=== PATIENT | male | born 1990 | race Hispanic/Latino ===

== ENCOUNTER 2017-06-14 07:31 | Inpatient (IN) | payer SELFPAY ==
[2017-06-14] MEDS ORDERED: QUELICIN ONE (07:46)
[2017-06-14] MEDS ORDERED: DIPRIVAN 10 MG/ML 1,000 MG/100 ML BOTTLE IV ONE (07:46)
[2017-06-14] MEDS ORDERED: AMIDATE IV ONE (07:46)
[2017-06-14] MEDS ORDERED: NACL 0.9% 1000 ML 1,000 ML IV ONE (07:59)
[2017-06-14] MEDS ORDERED: ARTIFICIAL TEARS OPHTH OINT OU PRN (08:00)
[2017-06-14] MEDS ORDERED: NACL 0.9% 500 ML IV SCH (08:00)
[2017-06-14] MEDS: DIPRIVAN 10 MG/ML 1,000 MG/100 ML BOTTLE IV SCH ×2 (08:00→19:18)
[2017-06-14] MEDS ORDERED: VASELINE LIP THERAPY TP PRN (08:00)
[2017-06-14 08:02] LABS: Basophils % (Auto) 0.3 % (0.0-1.8); Eosinophils % (Auto) 1.8 % (0.0-4.3); Hematocrit 46.1 % (35.5-45.6); Hemoglobin 15.4 gm/dl (11.8-15.2); Mean Corpuscular HGB Conc 34 % (32-34); Mean Corpuscular Hemoglobin 31 pg (28-32); Mean Corpuscular Volume 93 fl (84-94); Platelet Count 241 K/mm3 (140-440); Red Blood Count 4.96 M/mm3 (3.65-5.03); Red Cell Distribution Width 12.7 % (13.2-15.2); White Blood Count 12.9 K/mm3 (4.5-11.0)
[2017-06-14 08:08] LABS: INR 1.03 (0.87-1.13); Partial Thromboplastin Time 28.3 Sec. (24.2-36.6)
[2017-06-14 08:09] LABS: Anion Gap 21 mmol/L; Blood Urea Nitrogen 9 mg/dL (9-20); Calcium 8.1 mg/dL (8.4-10.2); Carbon Dioxide 20 mmol/L (22-30); Chloride 103.2 mmol/L (98-107); Glucose 117 mg/dL (75-100); Potassium 3.7 mmol/L (3.6-5.0); Sodium 140 mmol/L (137-145)
--- NOTE | 2017-06-14 08:15 | Cat Scan Report ---
CT scan of head without IV contrast: Compared to 05/10/13. History:Neurodeficit Findings: Ventricles are normal in size and midline in location. No evidence of acute ischemia hemorrhage or mass. No extra axial fluid collection. Normal brainstem and cerebellum. Stable intraventricular shunt. Mucosal edema of its more sinuses and the turbinates. Impression: No acute intracranial abnormality. Sinus disease. No interval change compared to previous study.
[2017-06-14 08:23] LABS: Creatine Kinase MB 2.6 ng/mL (0.0-4.0)
[2017-06-14 08:24] LABS: Alanine Aminotransferase 24 units/L (7-56); Albumin/Globulin Ratio 1.6 %; Alkaline Phosphatase 56 units/L (35-129); Amylase 50 units/L (27-131); Creatine Kinase 160 units/L (55-170); Total Protein 6.5 g/dL (6.3-8.2)
[2017-06-14 08:26] LABS: Bilirubin,Direct < 0.2 mg/dL (0-0.2)
[2017-06-14] MEDS ORDERED: ROCEPHIN/NS 1 GM/50 ML 1 GM/50 ML BAG IV ONE ×2 (08:27→11:24)
--- NOTE | 2017-06-14 08:27 | Emergency Department Report ---
ED General Adult HPI - General Chief complaint: Altered Mental Status Stated complaint: UNRESPONSIVE Time Seen by Provider: 06/14/17 07:57 Source: EMS Mode of arrival: Stretcher Limitations: Altered Mental Status - History of Present Illness Initial comments: Patient arrives with a GCS of 3. History as obtained by the paramedics and as I have obtained from the mother is the following. He was found at approximately 6:30 AM completely unresponsive. He was also noted to have vomited "blood". The mother states that she checked the patient's cell phone and found Texts at 4:30. She also states that he was fine at 9:30 PM. 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 He does not take any current medications. He has not had any recent hospitalizations. He has a history of DEGREE CLERK shunt. According to his mother he drinks beer but does not abuse substances. No further information is available at this time. -: unknown Treatments Prior to Arrival: other (Narcan without effect) - Related Data Home Medications Medication Instructions Recorded Confirmed Last Taken No Known Home Medications [No 06/14/17 06/14/17 Unknown Reported Home Medications] Allergies Allergy/AdvReac Type Severity Reaction Status Date / Time codeine Allergy Hives Verified 02/19/14 12:53 ED Review of Systems ROS: Stated complaint: UNRESPONSIVE Other details as noted in HPI Comment: Unobtainable due to pts medical conditions ED Past Medical Hx - Past Medical History Previous Medical History?: Yes - Surgical History Additional Surgical History: shunt to R. side head - Social History Smoking Status: Unknown if ever smoked Substance Use Type: Alcohol - Medications Home Medications: Home Medications Medication Instructions Recorded Confirmed Last Taken Type No Known Home Medications [No 06/14/17 06/14/17 Unknown History Reported Home Medications] ED Physical Exam - General Limitations: Altered Mental Status (GCS is 3) General appearance: obtunded - Head Head exam: Present: atraumatic, other (DEGREE CLERK shunt is noted) - Eye Eye exam: Present: other (myotic and unresponsive pupils). Absent: scleral icterus Pupils: Present: miosis - ENT ENT exam: Present: mucous membranes moist - Neck Neck exam: Present: normal inspection. Absent: tenderness, meningismus - Respiratory Respiratory exam: Present: rhonchi (bilaterally) - Cardiovascular Cardiovascular Exam: Present: regular rate, normal rhythm. Absent: systolic murmur, diastolic murmur, rubs, gallop - GI/Abdominal GI/Abdominal exam: Present: soft, normal bowel sounds. Absent: distended, tenderness, guarding, rebound - Neurological Exam Neurological exam: Present: other (GCS is 3) - Skin Skin exam: Present: warm, dry, intact, normal color, other (hematemesis is noted on the patient's shoulder). Absent: rash ED Course Vital Signs 06/14/17 07:36 Blood Pressure 123/66 - Reevaluation(s) Reevaluation #1: Patient essentially had snoring respirations probable aspiration at home and inability to protect his airway with a GCS of 3. RSI was promptly accomplished without difficulty. #8 endotracheal tube placed on direct laryngoscopy single attempt. CT was obtained expeditiously. Dr. Hutton found no acute findings and no change from prior CT. Patient remained unresponsive although he is on a propofol drip. His pupils remained miotic and nonreactive. His case was discussed with Dr. Gutierres. The asked me to order an MR study which has been done. Patient is in the process of being admitted to the ICU under the hospitalist service. 06/14/17 09:25 - Intubation Time Out Performed: No Sedative: Etomidate Paralytic: Succinylcholine Laryngoscope: Higinio Size: 4 ET Tube Size: 8 Tube Secured Depth (cm): 24 Tube Secured Location: teeth Tube Placement Confirmation: visualized tube passing t, equal breath sounds bilat, no breath sounds over epi, confirmation by capnometr Patient Tolerated Procedure: well Intubation Complications: none ED Medical Decision Making - Lab Data Result diagrams: 06/14/17 07:30 06/14/17 07:30 Laboratory Results - last 24 hr 06/14/17 06/14/17 06/14/17 07:30 07:30 07:30 WBC 12.9 H RBC 4.96 Hgb 15.4 H Hct 46.1 H MCV 93 MCH 31 MCHC 34 RDW 12.7 L Plt Count 241 Lymph % (Auto) 22.1 [place] % (Auto) 6.1 Eos % (Auto) 1.8 Baso % (Auto) 0.3 Lymph # 2.8 [place] # 0.8 Eos # 0.2 Baso # 0.0 Seg Neutrophils % 69.7 Seg Neutrophils # 9.0 H PT 13.4 INR 1.03 APTT 28.3 Thrombin Time POC ABG pH POC ABG pCO2 POC ABG pO2 POC ABG HCO3 POC ABG Total CO2 POC ABG O2 Sat POC ABG Base Excess FiO2 Sodium 140 Potassium 3.7 Chloride 103.2 Carbon Dioxide 20 L Anion Gap 21 BUN 9 Creatinine 0.9 Estimated GFR > 60 BUN/Creatinine Ratio 10.00 Glucose 117 H Calcium 8.1 L Total Bilirubin Direct Bilirubin AST ALT Alkaline Phosphatase Total Creatine Kinase CK-MB (CK-2) CK-MB (CK-2) Rel Index Troponin T < 0.010 NT-Pro-B Natriuret Pep Total Protein Albumin Albumin/Globulin Ratio Amylase Urine Color Urine Turbidity Urine pH Ur Specific [place] Urine Protein Urine Glucose (UA) Urine Ketones Urine Blood Urine Nitrite Urine Bilirubin Urine Urobilinogen Ur Leukocyte Esterase Urine WBC (Auto) Urine RBC (Auto) Urine Bacteria (Auto) Hyaline Casts Urine Mucus 06/14/17 06/14/17 06/14/17 07:30 07:30 08:46 WBC RBC Hgb Hct MCV MCH MCHC RDW Plt Count Lymph % (Auto) [place] % (Auto) Eos % (Auto) Baso % (Auto) Lymph # [place] # Eos # Baso # Seg Neutrophils % Seg Neutrophils # PT INR APTT Thrombin Time 17.4 POC ABG pH POC ABG pCO2 POC ABG pO2 POC ABG HCO3 POC ABG Total CO2 POC ABG O2 Sat POC ABG Base Excess FiO2 Sodium Potassium Chloride Carbon Dioxide Anion Gap BUN Creatinine Estimated GFR BUN/Creatinine Ratio Glucose Calcium Total Bilirubin 0.20 Direct Bilirubin < 0.2 AST 27 ALT 24 Alkaline Phosphatase 56 Total Creatine Kinase 160 CK-MB (CK-2) 2.6 CK-MB (CK-2) Rel Index 1.6 Troponin T < 0.010 NT-Pro-B Natriuret Pep 34.90 Total Protein 6.5 Albumin 4.0 Albumin/Globulin Ratio 1.6 Amylase 50 Urine Color Yellow Urine Turbidity Clear Urine pH 5.0 Ur Specific [place] 1.009 Urine Protein <15 mg/dl Urine Glucose (UA) Neg Urine Ketones Neg Urine Blood Sm Urine Nitrite Neg Urine Bilirubin Neg Urine Urobilinogen < 2.0 Ur Leukocyte Esterase Neg Urine WBC (Auto) 1.0 Urine RBC (Auto) 1.0 Urine Bacteria (Auto) 1+ Hyaline Casts 1 Urine Mucus Few 06/14/17 08:49 WBC RBC Hgb Hct MCV MCH MCHC RDW Plt Count Lymph % (Auto) [place] % (Auto) Eos % (Auto) Baso % (Auto) Lymph # [place] # Eos # Baso # Seg Neutrophils % Seg Neutrophils # PT INR APTT Thrombin Time POC ABG pH 7.265 L POC ABG pCO2 42.6 POC ABG pO2 289 H POC ABG HCO3 19.3 POC ABG Total CO2 21 POC ABG O2 Sat 100 POC ABG Base Excess -8 FiO2 100 Sodium Potassium Chloride Carbon Dioxide Anion Gap BUN Creatinine Estimated GFR BUN/Creatinine Ratio Glucose Calcium Total Bilirubin Direct Bilirubin AST ALT Alkaline Phosphatase Total Creatine Kinase CK-MB (CK-2) CK-MB (CK-2) Rel Index Troponin T NT-Pro-B Natriuret Pep Total Protein Albumin Albumin/Globulin Ratio Amylase Urine Color Urine Turbidity Urine pH Ur Specific [place] Urine Protein Urine Glucose (UA) Urine Ketones Urine Blood Urine Nitrite Urine Bilirubin Urine Urobilinogen Ur Leukocyte Esterase Urine WBC (Auto) Urine RBC (Auto) Urine Bacteria (Auto) Hyaline Casts Urine Mucus - EKG Data -: EKG Interpreted by Me EKG shows normal: sinus rhythm, axis, intervals, QRS complexes, ST-T waves Rate: normal - EKG Data Interpretation: no acute changes - Radiology Data interpreted by me: ET tube in proper location. Diffuse interstitial marking. Clinically aspiration is suspected. Critical Care Time: Yes Critical care time in (mins) excluding proc time.: 60 Critical care attestation.: If time is entered above; I have spent that time in minutes in the direct care of this critically ill patient, excluding procedure time. ED Disposition Clinical Impression: Upper GI bleeding Coma Qualifiers: Coma depth: Iris coma 3-8 Coma timing: in the field (EMT or ambulance) Qualified Code(s): R40.2431 - Needles coma scale score 3-8, in the field [EMT or ambulance] Aspiration into respiratory tract Qualifiers: Encounter type: initial encounter Qualified Code(s): T17.908A - Unspecified foreign body in respiratory tract, part unspecified causing other injury, initial encounter Disposition: OP ADMIT IP TO THIS HOSP Is pt being admited?: Yes Does the pt Need Aspirin: Yes Condition: Stable Referrals: PRIMARY CARE, [Primary Care Provider] - 3-5 Days Time of Disposition: 09:40
--- NOTE | 2017-06-14 08:28 | XRay Report ---
Single view chest: History: ET tube placement. Findings: Borderline cardiomegaly. Trachea is midline. Tip of endotracheal tube in normal position. Mild pulmonary venous congestion bilaterally. No consolidation or pleural effusion. Impression: Cardiomegaly with mild pulmonary venous congestion.
[2017-06-14] MEDS ORDERED: PROTONIX IV ONE (08:30)
[2017-06-14 08:51] LABS: Urine Drugs of Abuse Note Disclamer
[2017-06-14 08:52] LABS: ISTAT Base Excess -8; ISTAT HCO3 19.3; ISTAT PCO2 42.6 (35-45); ISTAT PH 7.265 (7.35-7.45); ISTAT PO2 289 (80-105); ISTAT SO2 100; ISTAT TCO2 21
[2017-06-14 08:58] LABS: Bacteria,Urine 1+ /HPF (Negative); Bilirubin,Urine NEG (Negative); Blood,Urine SM (Negative); Ketones,Urine NEG (Negative); Leukocyte Esterase,Urine NEG (Negative); Mucus,Urine FEW /HPF; Nitrite,Urine NEG (Negative); Protein,Urine <15 mg/dL mg/dL (Negative); Urobilinogen,Urine < 2.0 mg/dL (<2.0)
[2017-06-14] MEDS ORDERED: ASPIRIN PR ONE (09:14)
--- NOTE | 2017-06-14 09:42 | Event Note ---
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 was intubated in ER for airway protection, got protonix and rocephin, apparently father also of GI bleed * GIB: Consult GI, PPI drip, serial hct * metabolic encephalopathy: continue supportive care, continue vent, will hold sedation to assess mental status, check UDS, MRI/MRA brain, carotid dopplers to assess for anoxic event, EEG to check for seizure and monitor brain activity, Neurology consult * Cerebral palsy; continue supportive care * leukocytosis; appears to be reactive no evidence of infection; UA and CXR neg * Acute respiratory failure, continue vent, attempt to wean in mental status improves The high probability of a clinically significant, sudden or life threatening deterioration of the [neurologic, pulmonary, GI] system(s) required my full and direct attention, intervention and personal management. The aggregate critical care time was [33] minutes. This time is in addition to time spent performing reported procedures but includes the following: [] Data Review and interpretation [] Patient assessment and monitoring of vital signs [] Documentation [] Medication orders and management
[2017-06-14] MEDS ORDERED: DULCOLAX PR PRN (10:22)
[2017-06-14] MEDS: PROTONIX 80 MG in NACL 0.9% 100 ML IV SCH ×2 (12:29→21:18)
--- NOTE | 2017-06-14 12:40 | History and Physical Report ---
History of Present Illness Date of examination: 06/14/17 Date of admission: 06/14/17 10:22 Chief complaint: Unresponsiveness History of present illness: Patient is a 26 years old male with past medical history of cerebral palsy with PERFUME COMPOUNDER shunt, who presents to emergency department by EMS, Patient found unresponsive in bed by family. Patient remains unresponsive therefore unable to obtain history. Per his mother she states that patient normally goes to work around 6:00Am and mother went to his bedroom to waking him up but she found him unresponsive. She also noted that bloody vomit around his mouth and chest. Patient is functional and works in a [employer]. Patient no recent history of sickness. Mother reported that he worked yesterday and she spoke to him last night around 9:00Am and no complains of illness. No reports of fever, chills, chest pain, palpitation, syncope, trauma, seizure, bowel or bladder continence or recent ill contacts. 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 Past History Past Medical History: other (cerebral palsy) Past Surgical History: Other (AV shunt) Social history: lives with family, other (works at [employer], independent of ADLs). denies: smoking, alcohol abuse Family history: CAD, hypertension Medications and Allergies Allergies Allergy/AdvReac Type Severity Reaction Status Date / Time codeine Allergy Hives Verified 02/19/14 12:53 Home Medications Medication Instructions Recorded Confirmed Last Taken Type Cyclobenzaprine [Flexeril 10 MG 5 mg PO Q8H PRN #90 tablet 06/17/17 Unknown Rx TAB] Pantoprazole [Protonix] 40 mg PO QDAY #30 tablet 06/17/17 Unknown Rx levETIRAcetam [Keppra TAB] 500 mg PO BID #60 tablet 06/17/17 Unknown Rx oxyCODONE /ACETAMINOPHEN [Percocet 1 tab PO Q4H PRN #14 tablet 06/17/17 Unknown Rx 5/325 mg] Active Meds: Active Medications Bisacodyl (Dulcolax) 10 mg PA QDAY PRN PRN Reason: constipation unrelieved by MOM Hydrophilic Ointment (Vaseline Lip Therapy) 1 applic TP Q2HR PRN PRN Reason: Dry Lips Propofol (Diprivan 10 Mg/Ml) 1,000 mg in 100 mls @ 3.266 mls/hr IV TITR BONITA; 5 MCG/KG/MIN PRN Reason: Protocol Last Titration: 06/14/17 11:19 Dose: 25 mcg/kg/min, 16.329 mls/hr Sodium Chloride (Nacl 0.9% 1000 Ml) 1,000 mls @ 100 mls/hr IV DIRECT BONITA Pantoprazole Sodium 80 mg/ (Sodium Chloride) 100 mls @ 10 mls/hr IV Q10H BONITA PRN Reason: 8 MG/HR Last Admin: 06/14/17 12:29 Dose: 8 mg/hr, 10 mls/hr Multi-Ingred Cream/Lotion/Oil/Oint (Artificial Tears Ophth Oint) 1 applic OU Q4HR PRN PRN Reason: Dry Eye(s) Sodium Chloride (Nacl 0.9% 500 Ml) 1 ml IV DIRECT BONITA Review of Systems ROS unobtainable: due to mental status (unable to assess due to patient mental status) Exam - Constitutional Vitals: Temp Pulse Resp BP Pulse Ox 99 H 17 95/65 96 06/14/17 10:15 06/14/17 10:15 06/14/17 10:15 06/14/17 08:49 General appearance: Present: severe distress, other (Altered Mental Status (GCS is 3)) - EENT Eyes: Present: scleral icterus (absent), miosis ENT: other (myotic unresponsive pupils ) - Neck Neck: Present: supple - Respiratory Respiratory effort: other (intubated) Respiratory: bilateral: diminished, rhonchi - Cardiovascular Heart rate: 98 Rhythm: regular Heart Sounds: Present: S1 & S2 - Extremities Extremities: no ischemia Peripheral Pulses: within normal limits - Abdominal General gastrointestinal: Present: soft, non-tender Male genitourinary: Present: deferred - Rectal Rectal Exam: deferred - Integumentary Integumentary: Present: clear, warm, dry - Musculoskeletal Musculoskeletal: strength equal bilaterally - Psychiatric Psychiatric: other (Patient is nonresponsive) - Neurologic Neurologic: other (Patient is nonresponsive) - Allied Health Allied health notes reviewed: nursing Results - Labs CBC & Chem 7: 06/15/17 02:54 06/15/17 02:54 Labs: Laboratory Last Values WBC 12.9 K/mm3 (4.5-11.0) H 06/14/17 07:30 RBC 4.96 M/mm3 (3.65-5.03) 06/14/17 07:30 Hgb 15.4 gm/dl (11.8-15.2) H 06/14/17 07:30 Hct 46.1 % (35.5-45.6) H 06/14/17 07:30 MCV 93 fl (84-94) 06/14/17 07:30 MCH 31 pg (28-32) 06/14/17 07:30 MCHC 34 % (32-34) 06/14/17 07:30 RDW 12.7 % (13.2-15.2) L 06/14/17 07:30 Plt Count 241 K/mm3 (140-440) 06/14/17 07:30 Lymph % (Auto) 22.1 % (13.4-35.0) 06/14/17 07:30 [place] % (Auto) 6.1 % (0.0-7.3) 06/14/17 07:30 Eos % (Auto) 1.8 % (0.0-4.3) 06/14/17 07:30 Baso % (Auto) 0.3 % (0.0-1.8) 06/14/17 07:30 Lymph # 2.8 K/mm3 (1.2-5.4) 06/14/17 07:30 [place] # 0.8 K/mm3 (0.0-0.8) 06/14/17 07:30 Eos # 0.2 K/mm3 (0.0-0.4) 06/14/17 07:30 Baso # 0.0 K/mm3 (0.0-0.1) 06/14/17 07:30 Seg Neutrophils % 69.7 % (40.0-70.0) 06/14/17 07:30 Seg Neutrophils # 9.0 K/mm3 (1.8-7.7) H 06/14/17 07:30 PT 13.4 Sec. (12.2-14.9) 06/14/17 07:30 INR 1.03 (0.87-1.13) 06/14/17 07:30 APTT 28.3 Sec. (24.2-36.6) 06/14/17 07:30 Thrombin Time 17.4 Sec. (15.1-19.6) 06/14/17 07:30 POC ABG pH 7.265 (7.35-7.45) L 06/14/17 08:49 POC ABG pCO2 42.6 (35-45) 06/14/17 08:49 POC ABG pO2 289 (80-105) H 06/14/17 08:49 POC ABG HCO3 19.3 06/14/17 08:49 POC ABG Total CO2 21 06/14/17 08:49 POC ABG O2 Sat 100 06/14/17 08:49 POC ABG Base Excess -8 06/14/17 08:49 FiO2 100 % 06/14/17 08:49 Sodium 140 mmol/L (137-145) 06/14/17 07:30 Potassium 3.7 mmol/L (3.6-5.0) 06/14/17 07:30 Chloride 103.2 mmol/L (98-107) 06/14/17 07:30 Carbon Dioxide 20 mmol/L (22-30) L 06/14/17 07:30 Anion Gap 21 mmol/L 06/14/17 07:30 BUN 9 mg/dL (9-20) 06/14/17 07:30 Creatinine 0.9 mg/dL (0.8-1.5) 06/14/17 07:30 Estimated GFR > 60 ml/min 06/14/17 07:30 BUN/Creatinine Ratio 10.00 % 06/14/17 07:30 Glucose 117 mg/dL (75-100) H 06/14/17 07:30 Lactic Acid 2.10 mmol/L (0.7-2.0) H* 06/14/17 09:34 Calcium 8.1 mg/dL (8.4-10.2) L 06/14/17 07:30 Total Bilirubin 0.20 mg/dL (0.1-1.2) 06/14/17 07:30 Direct Bilirubin < 0.2 mg/dL (0-0.2) 06/14/17 07:30 AST 27 units/L (5-40) 06/14/17 07:30 ALT 24 units/L (7-56) 06/14/17 07:30 Alkaline Phosphatase 56 units/L (35-129) 06/14/17 07:30 Total Creatine Kinase 160 units/L (55-170) 06/14/17 07:30 CK-MB (CK-2) 2.6 ng/mL (0.0-4.0) 06/14/17 07:30 CK-MB (CK-2) Rel Index 1.6 (0-4) 06/14/17 07:30 Troponin T < 0.010 ng/mL (0.00-0.029) 06/14/17 07:30 NT-Pro-B Natriuret Pep 34.90 pg/mL (0-450) 06/14/17 07:30 Total Protein 6.5 g/dL (6.3-8.2) 06/14/17 07:30 Albumin 4.0 g/dL (3.9-5) 06/14/17 07:30 Albumin/Globulin Ratio 1.6 % 06/14/17 07:30 Amylase 50 units/L (27-131) 06/14/17 07:30 Urine Color Yellow (Yellow) 06/14/17 08:46 Urine Turbidity Clear (Clear) 06/14/17 08:46 Urine pH 5.0 (5.0-7.0) 06/14/17 08:46 Ur Specific [place] 1.009 (1.003-1.030) 06/14/17 08:46 Urine Protein <15 mg/dl mg/dL (Negative) 06/14/17 08:46 Urine Glucose (UA) Neg mg/dL (Negative) 06/14/17 08:46 Urine Ketones Neg mg/dL (Negative) 06/14/17 08:46 Urine Blood Sm (Negative) 06/14/17 08:46 Urine Nitrite Neg (Negative) 06/14/17 08:46 Urine Bilirubin Neg (Negative) 06/14/17 08:46 Urine Urobilinogen < 2.0 mg/dL (<2.0) 06/14/17 08:46 Ur Leukocyte Esterase Neg (Negative) 06/14/17 08:46 Urine WBC (Auto) 1.0 /HPF (0.0-6.0) 06/14/17 08:46 Urine RBC (Auto) 1.0 /HPF (0.0-6.0) 06/14/17 08:46 Urine Bacteria (Auto) 1+ /HPF (Negative) 06/14/17 08:46 Hyaline Casts 1 /LPF 06/14/17 08:46 Urine Mucus Few /HPF 06/14/17 08:46 Urine Opiates Screen Presumptive negative 06/14/17 08:46 Urine Methadone Screen Presumptive negative 06/14/17 08:46 Ur Barbiturates Screen Presumptive negative 06/14/17 08:46 Ur Phencyclidine Scrn Presumptive negative 06/14/17 08:46 Ur Amphetamines Screen Presumptive negative 06/14/17 08:46 U Benzodiazepines Scrn Presumptive negative 06/14/17 08:46 Urine Cocaine Screen Presumptive negative 06/14/17 08:46 U Marijuana (THC) Screen Presumptive negative 06/14/17 08:46 Drugs of Abuse Note Disclamer 06/14/17 08:46 - Imaging and Cardiology Chest x-ray: image reviewed (cardiomegaly and venous pulmonary congestion.) CT Scan - head: image reviewed (no acute intracranial process) Assessment and Plan Assessment and plan: Patient is a 26 years old male with past medical history of cerebral palsy with PERFUME COMPOUNDER shunt, who presents to emergency department by EMS, Patient found unresponsive in bed by family. Patient remains unresponsive therefore unable to obtain history. Per his mother she states that patient normally goes to work around 6:00Am and mother went to his bedroom to waking him up but she found him unresponsive. She also noted that bloody vomit around his mouth and chest. 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 PLAN Acute respiratory failure with hypoxia Patient intubated Aggressive Nebulizers/Inhalers ABG when necessary Supportive care Metabolic encephalopathy CT of the head no acute intracranial process. Continue vent We will hold sedation to assess mental status we will check UDS, MRI/MRA brain ordred Carotid dopplers to assess for anoxic event EEG to assess seizure activities Neurology consulted Supportive care Upper GI bleed Started on Protonix drip we will get serial hemoglobin and hematocrit Closely monitor H&H GI consulted Cerebral palsy Continue supportive care Leukocytosis Most likely reactive no evidence of infection Negative UA and CXR Repeat CBC and closely monitor Lactic acidosis Most likely reactive We will repeat Lactic acid Closely monitor DVT prophylaxis Lovenox Advance Directives: Yes VTE prophylaxis?: Chemical Contraindication Mechanical VTE Prophylaxis: Treatment Not Indicated Plan of care discussed with patient/family: Yes
[2017-06-14 22:16] LABS: Hematocrit 45.3 % (35.5-45.6); Hemoglobin 15.1 gm/dl (11.8-15.2)
[2017-06-15] MEDS: DIPRIVAN 10 MG/ML 1,000 MG/100 ML BOTTLE IV SCH ×3 (00:08→07:06)
[2017-06-15] MEDS ORDERED: ATIVAN 100 MG in NACL 0.9% 50 ML, VIAFLEX EMPTY CONTAINER 0 ML IV SCH (02:00)
[2017-06-15] MEDS ORDERED: fentaNYL DRIP Premix 2,000 MCG/100 ML BAG IV SCH (02:00)
[2017-06-15 03:21] LABS: Basophils % (Auto) 0.8 % (0.0-1.8); Eosinophils % (Auto) 0.4 % (0.0-4.3); Hematocrit 40.5 % (35.5-45.6); Hemoglobin 13.9 gm/dl (11.8-15.2); Mean Corpuscular HGB Conc 34 % (32-34); Mean Corpuscular Hemoglobin 32 pg (28-32); Mean Corpuscular Volume 92 fl (84-94); Platelet Count 209 K/mm3 (140-440); Red Blood Count 4.39 M/mm3 (3.65-5.03); Red Cell Distribution Width 13.1 % (13.2-15.2); White Blood Count 16.1 K/mm3 (4.5-11.0)
[2017-06-15 03:27] LABS: Anion Gap 20 mmol/L; BUN/Creatinine Ratio 8.18; Blood Urea Nitrogen 9 mg/dL (9-20); Calcium 7.7 mg/dL (8.4-10.2); Carbon Dioxide 18 mmol/L (22-30); Chloride 110.5 mmol/L (98-107); Glucose 99 mg/dL (75-100); Potassium 3.8 mmol/L (3.6-5.0); Sodium 145 mmol/L (137-145)
[2017-06-15 05:32] LABS: ISTAT Base Excess -8; ISTAT HCO3 18.5; ISTAT PCO2 38.1 (35-45); ISTAT PH 7.294 (7.35-7.45); ISTAT PO2 108 (80-105); ISTAT SO2 98; ISTAT TCO2 20
[2017-06-15] MEDS: NACL 0.9% 1000 ML 1,000 ML IV SCH ×2 (08:05→19:04)
[2017-06-15] MEDS ORDERED: ZOFRAN IV ONE (08:11)
--- NOTE | 2017-06-15 09:34 | Gastroenterology Consultation ---
History of Present Illness - Reason for Consult Consult date: 06/15/17 GI bleed Requesting physician: FARTUN FRANCO - History of Present Illness Patient is a 26 y/o male with a h/o cerebral palsy with STONE CIRCULAR SAWYER shunt who presented to the ER by EMS after being found unresponsive at home by family. He is currently being treated for acute respiratory failure, metabolic encephalopathy , and leukocytosis. GI has been consulted for a GI bleed. Family reports pt was found at home lying in a large amount of coffee-ground emesis. This morning pt resting in bed, intubated and on sedation, however he is able to follow commands and nod his head to questions. Family at bedside. History received via chart review and family. No active signs of bleeding noted by nursing since admission. OG tube currently intact draining non-bloody gastric material. No hx of liver disease or ETOH abuse. No NSAID use. Family reports no recent c/o illness. . Past History Past Medical History: other (cerebral palsy) Past Surgical History: Other (AV shunt) Social history: lives with family. denies: smoking, alcohol abuse Family history: CAD, hypertension Medications and Allergies Allergies Allergy/AdvReac Type Severity Reaction Status Date / Time codeine Allergy Hives Verified 02/19/14 12:53 Home Medications Medication Instructions Recorded Confirmed Last Taken Type No Known Home Medications [No 06/14/17 06/14/17 Unknown History Reported Home Medications] Active Meds: Active Medications Bisacodyl (Dulcolax) 10 mg AR QDAY PRN PRN Reason: constipation unrelieved by MOM Hydrophilic Ointment (Vaseline Lip Therapy) 1 applic TP Q2HR PRN PRN Reason: Dry Lips Propofol (Diprivan 10 Mg/Ml) 1,000 mg in 100 mls @ 3.266 mls/hr IV TITR BONITA; 5 MCG/KG/MIN PRN Reason: Protocol Last Titration: 06/15/17 08:31 Dose: 20 mcg/kg/min, 13.063 mls/hr Sodium Chloride (Nacl 0.9% 1000 Ml) 1,000 mls @ 100 mls/hr IV DIRECT BONITA Last Admin: 06/15/17 08:05 Dose: 100 mls/hr Pantoprazole Sodium 80 mg/ (Sodium Chloride) 100 mls @ 10 mls/hr IV Q10H BONITA PRN Reason: 8 MG/HR Last Admin: 06/14/17 21:18 Dose: 8 mg/hr, 10 mls/hr Lorazepam 100 mg/ Sodium Chloride/ Miscellaneous Information 100 mls @ 1 mls/ hr IV TITR BONITA; 1 MG/HR PRN Reason: Protocol Last Admin: 06/15/17 08:06 Dose: 1 mg/hr, 1 mls/hr Fentanyl Citrate (Fentanyl Drip Premix) 2,000 mcg in 100 mls @ 5.443 mls/hr IV TITR BONITA; 1 MCG/KG/HR PRN Reason: Protocol Last Admin: 06/15/17 02:13 Dose: 2 mcg/kg/hr, 10.886 mls/hr Multi-Ingred Cream/Lotion/Oil/Oint (Artificial Tears Ophth Oint) 1 applic OU Q4HR PRN PRN Reason: Dry Eye(s) Sodium Chloride (Nacl 0.9% 500 Ml) 1 ml IV DIRECT BONITA Review of Systems - Review of Systems ROS unobtainable: due to endotracheal tube Exam - Constitutional Vital Signs: Temp Pulse Resp BP Pulse Ox 100.5 F H 101 H 20 127/85 100 06/15/17 00:09 06/15/17 07:47 06/15/17 07:00 06/15/17 07:47 06/15/17 07:47 General appearance: no acute distress, obese, other (intubated ) - EENT Eyes: PERRL, EOM intact ENT: hearing intact - Respiratory Respiratory: bilateral: rhonchi - Cardiovascular Rhythm: other (tachycardia) Heart Sounds: Present: S1 & S2 Extremities: No edema - Gastrointestinal General gastrointestinal: Present: soft, non-tender, non-distended, normal bowel sounds, other (OG tube with non-bloody gastric material) - Integumentary Integumentary: Present: warm, dry - Labs CBC & Chem 7: 06/15/17 02:54 06/15/17 02:54 Lab Results: Laboratory Results - last 24 hr 06/14/17 06/14/17 06/15/17 13:54 21:53 02:54 WBC 16.1 H RBC 4.39 Hgb 15.0 15.1 13.9 Hct 44.0 45.3 40.5 MCV 92 MCH 32 MCHC 34 RDW 13.1 L Plt Count 209 Lymph % (Auto) 16.9 [place] % (Auto) 8.5 H Eos % (Auto) 0.4 Baso % (Auto) 0.8 Lymph # 2.7 [place] # 1.4 H Eos # 0.1 Baso # 0.1 Seg Neutrophils % 73.4 H Seg Neutrophils # 11.8 H POC ABG pH POC ABG pCO2 POC ABG pO2 POC ABG HCO3 POC ABG Total CO2 POC ABG O2 Sat POC ABG Base Excess FiO2 Sodium Potassium Chloride Carbon Dioxide Anion Gap BUN Creatinine Estimated GFR BUN/Creatinine Ratio Glucose Calcium 06/15/17 06/15/17 02:54 05:20 WBC RBC Hgb Hct MCV MCH MCHC RDW Plt Count Lymph % (Auto) [place] % (Auto) Eos % (Auto) Baso % (Auto) Lymph # [place] # Eos # Baso # Seg Neutrophils % Seg Neutrophils # POC ABG pH 7.294 L POC ABG pCO2 38.1 POC ABG pO2 108 H POC ABG HCO3 18.5 POC ABG Total CO2 20 POC ABG O2 Sat 98 POC ABG Base Excess -8 FiO2 40 Sodium 145 Potassium 3.8 Chloride 110.5 H Carbon Dioxide 18 L Anion Gap 20 BUN 9 Creatinine 1.1 Estimated GFR > 60 BUN/Creatinine Ratio 8.18 Glucose 99 Calcium 7.7 L Assessment and Plan 1.GI bleed 2.coffee-ground emesis 3.acute respiratory failure-intubated 4.metabolic encephalopathy 5.leukocytosis -HGB 13.9 -continue to monitor H/H and transfuse as needed -no active signs of bleeding -continue to hold blood thinning medications -currently hemodynamically stable -will d/c PPI drip and place on daily PPI -etiology unclear- possible M-W tear vs other -no recommendations for an EGD at this time unless overt bleeding develops -will follow
[2017-06-15] MEDS: PROTONIX 80 MG in NACL 0.9% 100 ML IV SCH (09:36)
--- NOTE | 2017-06-15 09:42 | XRay Report ---
Single view chest: Compared to 06/14/17. History: Followup of respiratory failure. Findings: Stable support system. Linear densities left lower lobe without significant interval change probably related to discoid atelectasis or pneumonitis. Normal CP angles. Impression: No interval change.
--- NOTE | 2017-06-15 10:25 | Progress Note ---
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 was intubated in ER for airway protection, got protonix and rocephin, apparently father also of GI bleed * Acute hypoxic respiratory failure Plan to wean off the vent today. Plan for extubation today * Metabolic encephalopathy Patient may have had a seizure leading to this as he was found to have blood in his mouth and was obtunded , he was most likely in a post ictal. At that time, As patient had a fever last night, concern for meningitis/encephalitis, obtain lumbar puncture, obtain ID consult, start on them. Antibiotics and antivirals Follow-up EEG, follow-up MR brain, his mentation is not back to baseline Follow-up neurology consult Rule out sepsis, UA and chest x-ray negative, awaiting LP results GIB likely due to Rowan-Clayton tear in the esophagus or stomach * GI input appreciated, hemoglobin is stable, continue supportive care, continue PPI Cerebral palsy Continue supportive care The high probability of a clinically significant, sudden or life threatening deterioration of the [neurologic, pulmonary, GI] system(s) required my full and direct attention, intervention and personal management. The aggregate critical care time was [33] minutes. This time is in addition to time spent performing reported procedures but includes the following: [] Data Review and interpretation [] Patient assessment and monitoring of vital signs [] Documentation [] Medication orders and management History Interval history: Patient has woken up, alert and he is obeying commands Hospitalist Physical - Physical exam Narrative exam: General.: Appears well, no distress, nontoxic HEENT: Moist mucous membranes, extraocular muscles intact, no lymphadenopathy Neck: supple Cardiac: S1-S2 heard Lungs: clear to auscultation bilaterally Abdomen: soft , nontender, nondistended, bowel sounds positive Extremities: no edema clubbing or cyanosis Skin: no rash or lesions Neurologic: Intubated, but awake and alert, obeys commands - Constitutional Vitals: Temp Pulse Resp BP Pulse Ox 100.5 F H 101 H 20 127/85 100 06/15/17 00:09 06/15/17 07:47 06/15/17 07:00 06/15/17 07:47 06/15/17 07:47 General appearance: Present: other (Altered Mental Status (GCS is 3)) Results - Labs CBC & Chem 7: 06/15/17 02:54 06/15/17 02:54 Labs: Laboratory Last Values WBC 16.1 K/mm3 (4.5-11.0) H 06/15/17 02:54 RBC 4.39 M/mm3 (3.65-5.03) 06/15/17 02:54 Hgb 13.9 gm/dl (11.8-15.2) 06/15/17 02:54 Hct 40.5 % (35.5-45.6) 06/15/17 02:54 MCV 92 fl (84-94) 06/15/17 02:54 MCH 32 pg (28-32) 06/15/17 02:54 MCHC 34 % (32-34) 06/15/17 02:54 RDW 13.1 % (13.2-15.2) L 06/15/17 02:54 Plt Count 209 K/mm3 (140-440) 06/15/17 02:54 Lymph % (Auto) 16.9 % (13.4-35.0) 06/15/17 02:54 [place] % (Auto) 8.5 % (0.0-7.3) H 06/15/17 02:54 Eos % (Auto) 0.4 % (0.0-4.3) 06/15/17 02:54 Baso % (Auto) 0.8 % (0.0-1.8) 06/15/17 02:54 Lymph # 2.7 K/mm3 (1.2-5.4) 06/15/17 02:54 [place] # 1.4 K/mm3 (0.0-0.8) H 06/15/17 02:54 Eos # 0.1 K/mm3 (0.0-0.4) 06/15/17 02:54 Baso # 0.1 K/mm3 (0.0-0.1) 06/15/17 02:54 Seg Neutrophils % 73.4 % (40.0-70.0) H 06/15/17 02:54 Seg Neutrophils # 11.8 K/mm3 (1.8-7.7) H 06/15/17 02:54 PT 13.4 Sec. (12.2-14.9) 06/14/17 07:30 INR 1.03 (0.87-1.13) 06/14/17 07:30 APTT 28.3 Sec. (24.2-36.6) 06/14/17 07:30 Thrombin Time 17.4 Sec. (15.1-19.6) 06/14/17 07:30 POC ABG pH 7.294 (7.35-7.45) L 06/15/17 05:20 POC ABG pCO2 38.1 (35-45) 06/15/17 05:20 POC ABG pO2 108 (80-105) H 06/15/17 05:20 POC ABG HCO3 18.5 06/15/17 05:20 POC ABG Total CO2 20 06/15/17 05:20 POC ABG O2 Sat 98 06/15/17 05:20 POC ABG Base Excess -8 06/15/17 05:20 FiO2 40 % 06/15/17 05:20 Sodium 145 mmol/L (137-145) 06/15/17 02:54 Potassium 3.8 mmol/L (3.6-5.0) 06/15/17 02:54 Chloride 110.5 mmol/L (98-107) H 06/15/17 02:54 Carbon Dioxide 18 mmol/L (22-30) L 06/15/17 02:54 Anion Gap 20 mmol/L 06/15/17 02:54 BUN 9 mg/dL (9-20) 06/15/17 02:54 Creatinine 1.1 mg/dL (0.8-1.5) 06/15/17 02:54 Estimated GFR > 60 ml/min 06/15/17 02:54 BUN/Creatinine Ratio 8.18 % 06/15/17 02:54 Glucose 99 mg/dL (75-100) 06/15/17 02:54 Lactic Acid 2.10 mmol/L (0.7-2.0) H* 06/14/17 09:34 Calcium 7.7 mg/dL (8.4-10.2) L 06/15/17 02:54 Total Bilirubin 0.20 mg/dL (0.1-1.2) 06/14/17 07:30 Direct Bilirubin < 0.2 mg/dL (0-0.2) 06/14/17 07:30 AST 27 units/L (5-40) 06/14/17 07:30 ALT 24 units/L (7-56) 06/14/17 07:30 Alkaline Phosphatase 56 units/L (35-129) 06/14/17 07:30 Total Creatine Kinase 160 units/L (55-170) 06/14/17 07:30 CK-MB (CK-2) 2.6 ng/mL (0.0-4.0) 06/14/17 07:30 CK-MB (CK-2) Rel Index 1.6 (0-4) 06/14/17 07:30 Troponin T < 0.010 ng/mL (0.00-0.029) 06/14/17 07:30 NT-Pro-B Natriuret Pep 34.90 pg/mL (0-450) 06/14/17 07:30 Total Protein 6.5 g/dL (6.3-8.2) 06/14/17 07:30 Albumin 4.0 g/dL (3.9-5) 06/14/17 07:30 Albumin/Globulin Ratio 1.6 % 06/14/17 07:30 Amylase 50 units/L (27-131) 06/14/17 07:30 Urine Color Yellow (Yellow) 06/14/17 08:46 Urine Turbidity Clear (Clear) 06/14/17 08:46 Urine pH 5.0 (5.0-7.0) 06/14/17 08:46 Ur Specific [place] 1.009 (1.003-1.030) 06/14/17 08:46 Urine Protein <15 mg/dl mg/dL (Negative) 06/14/17 08:46 Urine Glucose (UA) Neg mg/dL (Negative) 06/14/17 08:46 Urine Ketones Neg mg/dL (Negative) 06/14/17 08:46 Urine Blood Sm (Negative) 06/14/17 08:46 Urine Nitrite Neg (Negative) 06/14/17 08:46 Urine Bilirubin Neg (Negative) 06/14/17 08:46 Urine Urobilinogen < 2.0 mg/dL (<2.0) 06/14/17 08:46 Ur Leukocyte Esterase Neg (Negative) 06/14/17 08:46 Urine WBC (Auto) 1.0 /HPF (0.0-6.0) 06/14/17 08:46 Urine RBC (Auto) 1.0 /HPF (0.0-6.0) 06/14/17 08:46 Urine Bacteria (Auto) 1+ /HPF (Negative) 06/14/17 08:46 Hyaline Casts 1 /LPF 06/14/17 08:46 Urine Mucus Few /HPF 06/14/17 08:46 Urine Opiates Screen Presumptive negative 06/14/17 08:46 Urine Methadone Screen Presumptive negative 06/14/17 08:46 Ur Barbiturates Screen Presumptive negative 06/14/17 08:46 Ur Phencyclidine Scrn Presumptive negative 06/14/17 08:46 Ur Amphetamines Screen Presumptive negative 06/14/17 08:46 U Benzodiazepines Scrn Presumptive negative 06/14/17 08:46 Urine Cocaine Screen Presumptive negative 06/14/17 08:46 U Marijuana (THC) Screen Presumptive negative 06/14/17 08:46 Drugs of Abuse Note Disclamer 06/14/17 08:46
[2017-06-15] MEDS ORDERED: PROTONIX IV SCH (11:00)
[2017-06-15] MEDS ORDERED: VANCOMYCIN PHARMACY TO DOSE IV SCH (12:00)
[2017-06-15] MEDS ORDERED: DECADRON ONE (12:38)
[2017-06-15] MEDS ORDERED: VANCOMYCIN 2,000 MG in NACL 0.9% 500 ML 500 ML IV ONE (12:45)
[2017-06-15] MEDS ORDERED: ROCEPHIN/NS 2 GM/100 ML 2 GM/100 ML BAG IV SCH ×2 (13:00→20:00)
[2017-06-15] MEDS: DECADRON IV SCH ×2 (13:46→19:11)
[2017-06-15] MEDS ORDERED: ZOVIRAX IV SCH (14:00)
--- NOTE | 2017-06-15 14:30 | Procedure Note ---
Date of procedure: 06/15/17 Pre-op diagnosis: meningitis, headache Post-op diagnosis: same Procedure: flouro guided lumbar puncture Findings: none Anesthesia: local Surgeon: CHERRY TORRES Estimated blood loss: none Pathology: list (4 tubes) Specimen disposition: to lab Condition: stable Disposition: floor
[2017-06-15 15:03] LABS: Glucose,CSF 66 mg/dL
[2017-06-15 15:38] LABS: Appearance,CSF Clear; White Blood Cell,CSF 1 /mm3 (1-10)
[2017-06-15 16:15] LABS: Basophils CSF 0 %
[2017-06-15 16:16] LABS: CSF Diff Status Complete
[2017-06-15] MEDS: CALCIUM GLUCONATE 2,000 MG in NACL 0.9% 100 ML IV ONE ×2 (17:18→17:36)
[2017-06-15] MEDS: ZOVIRAX 500 MG in NACL 0.9% 100 ML IV SCH ×2 (17:35→23:01)
[2017-06-16] MEDS ORDERED: AMBIEN PO PRN (00:25)
[2017-06-16] MEDS: DECADRON IV SCH ×2 (00:40→07:02)
[2017-06-16] MEDS ORDERED: VANCOMYCIN 1,750 MG in NACL 0.9% 500 ML 500 ML IV SCH (06:00)
[2017-06-16] MEDS: ZOVIRAX 500 MG in NACL 0.9% 100 ML IV SCH (06:45)
--- NOTE | 2017-06-16 09:52 | Consultation ---
History of Present Illness - Reason for Consult Consult date: 06/16/17 coma - History of Present Illness I have gone over the ED notes and the results of the CSF studies.... the p[ rotein and glucose are normal and the OP in rsdiology is normal as well cell counts do not pont to meningitis and the CT of brain is normal Today the MRI was done and I will review with Dr. Painter as if something worth commenting I will leave additional note could well have been seizure raman with hx of shunt Past History Past Medical History: other (cerebral palsy) Past Surgical History: Other (AV shunt) Social history: lives with family. denies: smoking, alcohol abuse Family history: CAD, hypertension Medications and Allergies Allergies Allergy/AdvReac Type Severity Reaction Status Date / Time codeine Allergy Hives Verified 02/19/14 12:53 Home Medications Medication Instructions Recorded Confirmed Last Taken Type No Known Home Medications [No 06/14/17 06/14/17 Unknown History Reported Home Medications] Active Meds: Active Medications Bisacodyl (Dulcolax) 10 mg SC QDAY PRN PRN Reason: constipation unrelieved by MOM Dexamethasone (Decadron) 16 mg 0.15 mg/kg (16 mg) IV Q6H BONITA Last Admin: 06/16/17 07:02 Dose: 16 mg Sodium Chloride (Nacl 0.9% 1000 Ml) 1,000 mls @ 100 mls/hr IV DIRECT BONITA Last Admin: 06/15/17 19:04 Dose: 100 mls/hr Lorazepam 100 mg/ Sodium Chloride/ Miscellaneous Information 100 mls @ 1 mls/ hr IV TITR BONITA; 1 MG/HR PRN Reason: Protocol Last Admin: 06/15/17 08:06 Dose: 1 mg/hr, 1 mls/hr Acyclovir 500 mg/ Sodium (Chloride) 110 mls @ 100 mls/hr IV Q8HR BONITA Last Admin: 06/16/17 06:45 Dose: 100 mls/hr Vancomycin HCl 1,750 mg/ (Sodium Chloride) 517.5 mls @ 333.333 mls/hr IV Q12H BONITA Last Admin: 06/16/17 05:11 Dose: 333.333 mls/hr Ceftriaxone Sodium (Rocephin/Ns 2 Gm/100 Ml) 2 gm in 100 mls @ 200 mls/hr IV Q24H BONITA Last Admin: 06/15/17 21:40 Dose: 200 mls/hr Pantoprazole Sodium (Protonix) 40 mg PO QDAY BONITA Vancomycin HCl (Vancomycin Pharmacy To Dose) 1 each IV PKCONSULT BONITA PRN Reason: Protocol Zolpidem Tartrate (Ambien) 5 mg PO QHS PRN PRN Reason: Sleep Last Admin: 06/16/17 00:38 Dose: 5 mg Exam - Constitutional Vitals: Temp Pulse Resp BP Pulse Ox 98.8 F 114 H 18 136/70 94 06/16/17 07:57 06/16/17 07:57 06/16/17 07:57 06/16/17 07:57 06/16/17 07:57 Results - Labs CBC & Chem 7: 06/15/17 02:54 06/15/17 02:54
[2017-06-16] MEDS: PROTONIX PO SCH (10:15)
--- NOTE | 2017-06-16 10:23 | Magnetic Resonance Report ---
MRI BRAIN WITHOUT CONTRAST: 06/16/17 CLINICAL: History of a neural tube defect and recent neuro deficit. COMPARISON: CT head 06/14/17 TECHNIQUE: Axial diffusion, T1, T2, FLAIR, gradient echo T2*, and sagittal T1 sequences on a 1.5 Andree magnet. FINDINGS: Mild ventriculomegaly with a right frontal SKIP TENDER shunt. No restricted diffusion. Prominent calcification at the posterior falx cerebri producing hypointense signal on gradient echo sequence and hyperintense signal on T1, T2 and FLARE sequences. No other abnormal signal. No mass or mass effect. No hemorrhage, edema or extra-axial collection. Normal pituitary and optic chiasm. The brainstem is normal. The cerebellar tonsils are low and consistent with a Chiari I malformation. Intact vascular flow voids. Mild bilateral ethmoid sinus mucoperiosteal thickening. Greater mucoperiosteal thickening of the left sphenoid sinus. Fluid in right mastoid air cells. The orbits, and soft tissues are normal. Normal calvarium and skull base. IMPRESSION: 1. Chiari malformation and mild hydrocephalus with a SKIP TENDER shunt in place. 2. No acute change.
--- NOTE | 2017-06-16 10:35 | Magnetic Resonance Report ---
MRA HEAD WITHOUT CONTRAST: 06/16/17 CLINICAL: Recent episode with neuro deficits. TECHNIQUE: Axial 3-D [id number] MR angiography of the [place] with review of axial source images. FINDINGS: Intact [place] with no aneurysm, stenosis or occlusion. Symmetric blood flow in the anterior, middle and posterior cerebral arteries. Normal basilar and vertebral arteries. IMPRESSION: Normal study.
--- NOTE | 2017-06-16 10:58 | Progress Note ---
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 was intubated in ER for airway protection, got protonix and rocephin, apparently father also of GI bleed MRI brain, image reviewed, shows Chiari malformation and mild hydrocephalus with UNDERGROUND ELECTRICIAN shunt in place. No acute findings Status epilepticus Patient is started on Keppra -After discussing the case with his mother, she states that he has a previous history of seizure disorder. His last seizure was at age 14. He used to be on phenobarbital. * Acute hypoxic respiratory failure on mechanical vent less than 96 hours He was extubated on 06/15, on room air and doing well, was most likely due to metabolic encephalopathy of post ictal states * Metabolic encephalopathy Patient may have had a seizure leading to this as he was found to have blood in his mouth and was obtunded , he was most likely in a post ictal. -Neurology input appreciated, most likely a seizure, patient has been started on Keppra -He is status post lumbar puncture, CSF analysis is not consistent with discontinue antibiotics and antivirals Infection workup has been negative, UA and chest x-ray negative GIB likely due to Rowan-Clayton tear in the esophagus or stomach * GI input appreciated, hemoglobin is stable, continue supportive care, continue PPI Cerebral palsy Continue supportive care Tentative discharge home tomorrow if patient tolerates Keppra. The case was discussed with his mother. Also discussed the case management who will provide him with resources that he does not have health insurance. His mother's phone number is [phone] History Interval history: He feels well, no further episodes of loss of consciousness and he complains of chronic lower back pain which is unchanged from his baseline. Hospitalist Physical - Physical exam Narrative exam: General.: Appears well, no distress, nontoxic HEENT: Moist mucous membranes, extraocular muscles intact, no lymphadenopathy Neck: supple Cardiac: S1-S2 heard Lungs: clear to auscultation bilaterally Abdomen: soft , nontender, nondistended, bowel sounds positive Extremities: no edema clubbing or cyanosis Skin: no rash or lesions Neurologic: no gross focal deficits Psych: appropriate behavior, appropriate mood, corporative, judgment intact - Constitutional Vitals: Temp Pulse Resp BP Pulse Ox 98.8 F 114 H 18 136/70 94 06/16/17 07:57 06/16/17 07:57 06/16/17 07:57 06/16/17 07:57 06/16/17 07:57 General appearance: Present: other (Altered Mental Status (GCS is 3)) Results - Labs CBC & Chem 7: 06/15/17 02:54 06/15/17 02:54 Labs: Laboratory Last Values WBC 16.1 K/mm3 (4.5-11.0) H 06/15/17 02:54 RBC 4.39 M/mm3 (3.65-5.03) 06/15/17 02:54 Hgb 13.9 gm/dl (11.8-15.2) 06/15/17 02:54 Hct 40.5 % (35.5-45.6) 06/15/17 02:54 MCV 92 fl (84-94) 06/15/17 02:54 MCH 32 pg (28-32) 06/15/17 02:54 MCHC 34 % (32-34) 06/15/17 02:54 RDW 13.1 % (13.2-15.2) L 06/15/17 02:54 Plt Count 209 K/mm3 (140-440) 06/15/17 02:54 Lymph % (Auto) 16.9 % (13.4-35.0) 06/15/17 02:54 [place] % (Auto) 8.5 % (0.0-7.3) H 06/15/17 02:54 Eos % (Auto) 0.4 % (0.0-4.3) 06/15/17 02:54 Baso % (Auto) 0.8 % (0.0-1.8) 06/15/17 02:54 Lymph # 2.7 K/mm3 (1.2-5.4) 06/15/17 02:54 [place] # 1.4 K/mm3 (0.0-0.8) H 06/15/17 02:54 Eos # 0.1 K/mm3 (0.0-0.4) 06/15/17 02:54 Baso # 0.1 K/mm3 (0.0-0.1) 06/15/17 02:54 Seg Neutrophils % 73.4 % (40.0-70.0) H 06/15/17 02:54 Seg Neutrophils # 11.8 K/mm3 (1.8-7.7) H 06/15/17 02:54 PT 13.4 Sec. (12.2-14.9) 06/14/17 07:30 INR 1.03 (0.87-1.13) 06/14/17 07:30 APTT 28.3 Sec. (24.2-36.6) 06/14/17 07:30 Thrombin Time 17.4 Sec. (15.1-19.6) 06/14/17 07:30 POC ABG pH 7.294 (7.35-7.45) L 06/15/17 05:20 POC ABG pCO2 38.1 (35-45) 06/15/17 05:20 POC ABG pO2 108 (80-105) H 06/15/17 05:20 POC ABG HCO3 18.5 06/15/17 05:20 POC ABG Total CO2 20 06/15/17 05:20 POC ABG O2 Sat 98 06/15/17 05:20 POC ABG Base Excess -8 06/15/17 05:20 FiO2 40 % 06/15/17 05:20 Sodium 145 mmol/L (137-145) 06/15/17 02:54 Potassium 3.8 mmol/L (3.6-5.0) 06/15/17 02:54 Chloride 110.5 mmol/L (98-107) H 06/15/17 02:54 Carbon Dioxide 18 mmol/L (22-30) L 06/15/17 02:54 Anion Gap 20 mmol/L 06/15/17 02:54 BUN 9 mg/dL (9-20) 06/15/17 02:54 Creatinine 1.1 mg/dL (0.8-1.5) 06/15/17 02:54 Estimated GFR > 60 ml/min 06/15/17 02:54 BUN/Creatinine Ratio 8.18 % 06/15/17 02:54 Glucose 99 mg/dL (75-100) 06/15/17 02:54 Lactic Acid 2.10 mmol/L (0.7-2.0) H* 06/14/17 09:34 Calcium 7.7 mg/dL (8.4-10.2) L 06/15/17 02:54 Total Bilirubin 0.20 mg/dL (0.1-1.2) 06/14/17 07:30 Direct Bilirubin < 0.2 mg/dL (0-0.2) 06/14/17 07:30 AST 27 units/L (5-40) 06/14/17 07:30 ALT 24 units/L (7-56) 06/14/17 07:30 Alkaline Phosphatase 56 units/L (35-129) 06/14/17 07:30 Total Creatine Kinase 160 units/L (55-170) 06/14/17 07:30 CK-MB (CK-2) 2.6 ng/mL (0.0-4.0) 06/14/17 07:30 CK-MB (CK-2) Rel Index 1.6 (0-4) 06/14/17 07:30 Troponin T < 0.010 ng/mL (0.00-0.029) 06/14/17 07:30 NT-Pro-B Natriuret Pep 34.90 pg/mL (0-450) 06/14/17 07:30 Total Protein 6.5 g/dL (6.3-8.2) 06/14/17 07:30 Albumin 4.0 g/dL (3.9-5) 06/14/17 07:30 Albumin/Globulin Ratio 1.6 % 06/14/17 07:30 Amylase 50 units/L (27-131) 06/14/17 07:30 Urine Color Yellow (Yellow) 06/14/17 08:46 Urine Turbidity Clear (Clear) 06/14/17 08:46 Urine pH 5.0 (5.0-7.0) 06/14/17 08:46 Ur Specific [place] 1.009 (1.003-1.030) 06/14/17 08:46 Urine Protein <15 mg/dl mg/dL (Negative) 06/14/17 08:46 Urine Glucose (UA) Neg mg/dL (Negative) 06/14/17 08:46 Urine Ketones Neg mg/dL (Negative) 06/14/17 08:46 Urine Blood Sm (Negative) 06/14/17 08:46 Urine Nitrite Neg (Negative) 06/14/17 08:46 Urine Bilirubin Neg (Negative) 06/14/17 08:46 Urine Urobilinogen < 2.0 mg/dL (<2.0) 06/14/17 08:46 Ur Leukocyte Esterase Neg (Negative) 06/14/17 08:46 Urine WBC (Auto) 1.0 /HPF (0.0-6.0) 06/14/17 08:46 Urine RBC (Auto) 1.0 /HPF (0.0-6.0) 06/14/17 08:46 Urine Bacteria (Auto) 1+ /HPF (Negative) 06/14/17 08:46 Hyaline Casts 1 /LPF 06/14/17 08:46 Urine Mucus Few /HPF 06/14/17 08:46 CSF Appearance Clear 06/15/17 14:25 CSF Color Colorless 06/15/17 14:25 CSF WBC 1 /mm3 (1-10) 06/15/17 14:25 CSF RBC 3 /mm3 (0-0) 06/15/17 14:25 CSF Seg Neutrophils 0 % (0-6) 06/15/17 14:25 CSF Lymphocytes % 70.0 % (40-80) 06/15/17 14:25 CSF Reactive Lymphs 0 % 06/15/17 14:25 CSF Monocytes % 30.0 % (15-45) 06/15/17 14:25 CSF Eosinophils % 0 % 06/15/17 14:25 CSF Basophils 0 % 06/15/17 14:25 CSF Comment Diff performed 06/15/17 14:25 CSF Pathologist Review C 06/15/17 14:25 CSF Glucose 66 mg/dL 06/15/17 14:25 CSF Total Protein 49 mg/dL 06/15/17 14:25 Urine Opiates Screen Presumptive negative 06/14/17 08:46 Urine Methadone Screen Presumptive negative 06/14/17 08:46 Ur Barbiturates Screen Presumptive negative 06/14/17 08:46 Ur Phencyclidine Scrn Presumptive negative 06/14/17 08:46 Ur Amphetamines Screen Presumptive negative 06/14/17 08:46 U Benzodiazepines Scrn Presumptive negative 06/14/17 08:46 Urine Cocaine Screen Presumptive negative 06/14/17 08:46 U Marijuana (THC) Screen Presumptive negative 06/14/17 08:46 Drugs of Abuse Note Disclamer 06/14/17 08:46
[2017-06-16] MEDS ORDERED: PERCOCET 5/325 PO PRN (12:36)
[2017-06-16] MEDS ORDERED: FLEXERIL PO PRN (12:36)
[2017-06-16] MEDS: KEPPRA PO SCH ×2 (12:51→21:46)
[2017-06-16] MEDS: NACL 0.9% 1000 ML 1,000 ML IV SCH (12:51)
[2017-06-17] MEDS ORDERED: THORAZINE 25 MG in NACL 0.9% 50 ML IV PRN (00:51)
[2017-06-17] MEDS: NACL 0.9% 1000 ML 1,000 ML IV SCH (05:59)
[2017-06-17 08:15] VITALS: BP 132/92
[2017-06-17] MEDS: PROTONIX PO SCH (09:43)
[2017-06-17] MEDS: KEPPRA PO SCH (09:43)
--- NOTE | 2017-06-17 09:57 | Consultation ---
History of Present Illness - Reason for Consult Consult date: 06/17/17 syncope - History of Present Illness went over the MRI with radiology and the MRI shows the shunts are working well no acute lesions there is physiological calcification in the occipital lobe area... 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 denies: smoking, alcohol abuse Family history: CAD, hypertension Medications and Allergies Allergies Allergy/AdvReac Type Severity Reaction Status Date / Time codeine Allergy Hives Verified 02/19/14 12:53 Home Medications Medication Instructions Recorded Confirmed Last Taken Type Cyclobenzaprine [Flexeril 10 MG 5 mg PO Q8H PRN #90 tablet 06/17/17 Unknown Rx TAB] Pantoprazole [Protonix] 40 mg PO QDAY #30 tablet 06/17/17 Unknown Rx levETIRAcetam [Keppra TAB] 500 mg PO BID #60 tablet 06/17/17 Unknown Rx oxyCODONE /ACETAMINOPHEN [Percocet 1 tab PO Q4H PRN #14 tablet 06/17/17 Unknown Rx 5/325 mg] Active Meds: Active Medications Bisacodyl (Dulcolax) 10 mg [place] QDAY PRN PRN Reason: constipation unrelieved by MOM Cyclobenzaprine HCl (Flexeril) 5 mg PO Q8H PRN PRN Reason: Muscle Spasm Last Admin: 06/16/17 17:15 Dose: 5 mg Sodium Chloride (Nacl 0.9% 1000 Ml) 1,000 mls @ 100 mls/hr IV DIRECT BONITA Last Admin: 06/17/17 05:59 Dose: 100 mls/hr Lorazepam 100 mg/ Sodium Chloride/ Miscellaneous Information 100 mls @ 1 mls/ hr IV TITR BONITA; 1 MG/HR PRN Reason: Protocol Last Admin: 06/15/17 08:06 Dose: 1 mg/hr, 1 mls/hr Chlorpromazine HCl 25 mg/ (Sodium Chloride) 51 mls @ 100 mls/hr IV Q4H PRN PRN Reason: Hiccups Last Admin: 06/17/17 01:39 Dose: 100 mls/hr Levetiracetam (Keppra) 500 mg PO BID [facility] Last Admin: 06/17/17 09:43 Dose: 500 mg Oxycodone/Acetaminophen (Percocet 5/325) 1 tab PO Q4H PRN PRN Reason: Pain, Moderate (4-6) Last Admin: 06/16/17 14:09 Dose: 1 tab Pantoprazole Sodium (Protonix) 40 mg PO QDAY [facility] Last Admin: 06/17/17 09:43 Dose: 40 mg Zolpidem Tartrate (Ambien) 5 mg PO QHS PRN PRN Reason: Sleep Last Admin: 06/16/17 00:38 Dose: 5 mg Exam - Constitutional Vitals: Temp Pulse Resp BP Pulse Ox 97.8 F 84 16 132/92 98 06/17/17 07:44 06/17/17 07:44 06/17/17 07:44 06/17/17 07:44 06/17/17 07:44 Results - Labs CBC & Chem 7: 06/15/17 02:54 06/15/17 02:54
--- NOTE | 2017-06-17 10:18 | Fluoroscopy Report ---
FLUOROSCOPY LUMBAR PUNCTURE History: Fever, altered mental status, seizure. Description of procedure: Informed consent was obtained. Sterile technique was utilized. 1% lidocaine for skin anesthesia. Using fluoroscopy guidance, a spinal needle was placed at the L2-3 level. There was spontaneous return of clear CSF. 4 CSF tubes were collected for analysis. No complications. Impression: Successful fluoroscopy guided lumbar puncture as described.
--- NOTE | 2017-06-17 13:01 | Discharge Summary ---
Providers - Providers Date of Admission: 06/14/17 10:22 Attending physician: HARIKA HECTOR MD 06/14/17 10:26 Consult to Physician [CONS] Routine Consulting Provider: JUAN F CLAY Reason For Exam: upper GI bleed Place consult to:: kayden Notified:: y Phone number called:: yes Consult to Physician [CONS] Routine Consulting Provider: FERNANDO MARK Reason For Exam: unresponsive Place consult to:: bryson Notified:: y Phone number called:: yes 06/15/17 12:00 Speech Therapy Evaluation and Treat [CONS] Routine Reason For Exam: dysphagia Primary care physician: STUDENT DEAN Hospitalization Condition: Stable Pertinent studies: MRI brain, image reviewed, shows Chiari malformation and mild hydrocephalus with MEDIA RELATIONS DIRECTOR shunt in place. 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 Based on the story of the patient being awake at 4 AM and being found at 6 AM unresponsive with blood in his mouth, and his previous history of seizure disorder. It is most likely the patient suffered a seizure, and was in a post ictal state on the first day of his admission to the hospital. After 24 hours he clinically improved and was weaned off the ventilator. He was seen in conjunction with neurology, he had an MRI of his brain that did not show any acute findings, he also had a lumbar puncture and CSF analysis was not consistent with meningitis or encephalitis. He was started on seizure medications prior to discharge. He did not have any further episodes of hematemesis. He was most likely due to Rowan-Clayton tear, he was seen by gastroenterology who agreed with the care, his hemoglobin was stable. He was started on a PPI which he said take for the next month. Discharge diagnoses Status epilepticus Metabolic encephalopathy Acute respiratory failure on mechanical ventilator less than 96 hours GI bleed likely due to Rowan-Clayton tear in the esophagus or stomach Cerebral palsy Disposition: - TO HOME OR SELFCARE Time spent for discharge: 33 minutes Core Measure Documentation - Palliative Care Palliative Care/ Comfort Measures: Not Applicable - Core Measures Any of the following diagnoses?: none Exam - Constitutional Vitals: Temp Pulse Resp BP Pulse Ox 97.8 F 84 16 132/92 96 06/17/17 07:44 06/17/17 07:44 06/17/17 07:44 06/17/17 07:44 06/17/17 10:00 General appearance: Present: no acute distress, well-nourished - EENT Eyes: Present: PERRL ENT: hearing intact, clear oral mucosa - Neck Neck: Present: supple, normal ROM - Respiratory Respiratory effort: normal Respiratory: bilateral: CTA - Cardiovascular Heart Sounds: Present: S1 & S2. Absent: rub, click - Extremities Extremities: pulses symmetrical, No edema Peripheral Pulses: within normal limits - Abdominal General gastrointestinal: Present: soft, non-tender, non-distended, normal bowel sounds Male genitourinary: Present: normal - Integumentary Integumentary: Present: clear, warm, dry - Musculoskeletal Musculoskeletal: gait normal, strength equal bilaterally - Psychiatric Psychiatric: appropriate mood/affect, intact judgment & insight - Neurologic Neurologic: CNII-XII intact, moves all extremities Plan Follow up with: PRIMARY CARE,MD [Primary Care Provider] - 3-5 Days Forms: Accompanied Note, Work/School Release Form Prescriptions: Cyclobenzaprine [Flexeril 10 MG TAB] 5 mg PO Q8H PRN #90 tablet PRN Reason: Muscle Spasm levETIRAcetam [Keppra TAB] 500 mg PO BID #60 tablet oxyCODONE /ACETAMINOPHEN [Percocet 5/325 mg] 1 tab PO Q4H PRN #14 tablet PRN Reason: Pain, Moderate (4-6) Pantoprazole [Protonix] 40 mg PO QDAY #30 tablet
--- NOTE | 2017-06-18 02:10 | Consultation ---
This EEG shows posterior sharp wave activity suggestive of epileptiform discharges. IMPRESSION: Abnormal EEG with sharp wave discharges posteriorly suggestive of epileptiform activity, slowing is noted as well. JOB# [id number] DADA/KARUNA
== END 2017-06-17 13:45 | disposition home or self-care (01) | DRG 208 ==
LOC: ED 07:31 → CC1 10:22 → 3A 06-15 13:39
PROVIDERS: ADMIT Internal Medicine; ATTEND Internal Medicine
PROC: 5A1945Z Respiratory Ventilation, 24-96 Consecutive Hours (ICD-10-PCS; principal; 2017-06-14)
PROC: 0BH17EZ Insertion of Endotracheal Airway into Trachea, Via Natural or Artificial Opening (ICD-10-PCS; 2017-06-14)
PROC: 4A033R1 Measurement of Arterial Saturation, Peripheral, Percutaneous Approach (ICD-10-PCS; 2017-06-14)
PROC: 009U3ZX Drainage of Spinal Canal, Percutaneous Approach, Diagnostic (ICD-10-PCS; 2017-06-15)
PROC: B01B1ZZ Fluoroscopy of Spinal Cord using Low Osmolar Contrast (ICD-10-PCS; 2017-06-15)
DX: J96.01 Acute respiratory failure with hypoxia (principal); K22.6 Gastro-esophageal laceration-hemorrhage syndrome; G93.41 Metabolic encephalopathy; G80.9 Cerebral palsy, unspecified; D72.829 Elevated white blood cell count, unspecified; G40.901 Epilepsy, unspecified, not intractable, with status epilepticus; Z82.49 Family history of ischemic heart disease and other diseases of the circulatory system; Z83.79 Family history of other diseases of the digestive system; Z88.6 Allergy status to analgesic agent
CPT/HCPCS: 36415; 36600; 62270; 70450; 70544; 70551; 71010; 77003; 80048; 80074; 80307; 81001; 82140; 82150; 82550; 82553; 82803; 82947; 83880; 84160; 84484; 85014; 85018; 85025; 85610; 85670; 85730; 86403; 87070; 87116; 87205; 89051; 93005; 93010; 93880; 94002; 94003; 94760; 95819; 99406; C9113; J0133; J0330; J0610; J0696; J1100; J2060; J2405; J2704; J3010; J3230; J3370; J7030; J7040

== ENCOUNTER 2017-06-20 13:36 | Inpatient (IN) | payer SELFPAY ==
[2017-06-20] MEDS ORDERED: ZOFRAN IV ONE ×2 (14:22→16:48)
[2017-06-20] MEDS ORDERED: ZOFRAN ONE (14:23)
[2017-06-20 14:29] LABS: Anion Gap 24 mmol/L; BUN/Creatinine Ratio 14; Blood Urea Nitrogen 13 mg/dL (9-20); Calcium 9.5 mg/dL (8.4-10.2); Carbon Dioxide 21 mmol/L (22-30); Chloride 97.5 mmol/L (98-107); Glucose 126 mg/dL (75-100); Potassium 3.8 mmol/L (3.6-5.0); Sodium 139 mmol/L (137-145)
--- NOTE | 2017-06-20 14:54 | Cat Scan Report ---
Cranial CT without contrast. History: Severe headache, history of TIP PRINTER shunt. Findings: Comparison is made to previous study on June 14, 2017. Postsurgical changes in the occipital and right frontal bone are again noted. There is no evidence of acute hemorrhage or infarct. The ventricular shunt tube is unchanged in position. The ventricles are normal in size and contour. The temporal horns are visible. There are no masses or extra-axial collections. The posterior fossa is unremarkable. No additional calvarial abnormalities. Impression: No acute findings or interval changes since June 14, 2017.
[2017-06-20 15:05] LABS: Hematocrit 50.1 % (35.5-45.6); Hemoglobin 16.9 gm/dl (11.8-15.2); Mean Corpuscular HGB Conc 34 % (32-34); Mean Corpuscular Hemoglobin 31 pg (28-32); Mean Corpuscular Volume 92 fl (84-94); Platelet Count 338 K/mm3 (140-440); Red Blood Count 5.45 M/mm3 (3.65-5.03); Red Cell Distribution Width 12.6 % (13.2-15.2); White Blood Count 19.7 K/mm3 (4.5-11.0)
[2017-06-20 15:33] LABS: Blastocytes % (Manual) 0 %
[2017-06-20 15:34] LABS: Basophils % (Manual) 0 % (0.0-1.8); Diff Status Complete; RBC Morphology Normal
[2017-06-20] MEDS ORDERED: KIONEX PO ONE (16:33)
[2017-06-20] MEDS ORDERED: PROVENTIL IH ONE (16:35)
[2017-06-20] MEDS ORDERED: NACL 0.9% 1000 ML 1,000 ML IV ONE (16:48)
--- NOTE | 2017-06-20 16:53 | Emergency Department Report ---
HPI - General Chief Complaint: Headache Time Seen by Provider: 06/20/17 16:20 - HPI HPI: This is a 26-year-old male who presents to the emergency department with complaint of nausea, vomiting and a posterior headache. The patient was here last week and had seizure activity that led to him being intubated. He was discharged last Sunday, 4 days ago, and says he has been having nausea and vomiting since that time. 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 He was discharged home on seizure medication which he says he has been taking compliantly, as much as possible with the vomiting. Today he had an episode of vomiting where he feels like his head "snapped back" and started causing this headache. He otherwise has not taken anything for his symptoms prior to presentation. He denies any fever, vision change, slurred speech or any neurological deficits. ED Past Medical Hx - Past Medical History Previous Medical History?: Yes Hx Seizures: Yes - Surgical History Past Surgical History?: Yes Additional Surgical History: shunt to R. side head - Social History Smoking Status: Current Every Day Smoker Substance Use Type: Alcohol - Medications Home Medications: Home Medications Medication Instructions Recorded Confirmed Last Taken Type Cyclobenzaprine [Flexeril 10 MG 5 mg PO Q8H PRN #90 tablet 06/17/17 Unknown Rx TAB] Pantoprazole [Protonix] 40 mg PO QDAY #30 tablet 06/17/17 Unknown Rx levETIRAcetam [Keppra TAB] 500 mg PO BID #60 tablet 06/17/17 Unknown Rx oxyCODONE /ACETAMINOPHEN [Percocet 1 tab PO Q4H PRN #14 tablet 06/17/17 Unknown Rx 5/325 mg] ED Review of Systems ROS: Stated complaint: HEAD PAIN Other details as noted in HPI Comment: All other systems reviewed and negative Constitutional: denies: chills, fever Eyes: denies: eye pain, eye discharge, vision change ENT: denies: ear pain, throat pain Respiratory: denies: cough, shortness of breath, wheezing Cardiovascular: denies: chest pain, palpitations Gastrointestinal: nausea, vomiting Genitourinary: denies: urgency, dysuria Musculoskeletal: denies: back pain, joint swelling, arthralgia Skin: denies: rash, lesions Neurological: headache. denies: weakness, numbness Physical Exam - Physical Exam Vital Signs: Vital Signs 06/20/17 06/20/17 06/20/17 13:42 14:01 14:08 Temperature 97.7 F 98.2 F Pulse Rate 81 69 Respiratory 24 14 Rate Blood Pressure 149/108 Blood Pressure 142/98 [Right] O2 Sat by Pulse 100 100 100 Oximetry 06/20/17 14:15 Temperature Pulse Rate 63 Respiratory 18 Rate Blood Pressure 152/95 Blood Pressure [Right] O2 Sat by Pulse 100 Oximetry Physical Exam: GENERAL: The patient is well-developed well-nourished. HENT: Normocephalic. Atraumatic. Patient has moist mucous membranes. No nystagmus. EYES: Extraocular motions are intact. Pupils equal reactive to light bilaterally. NECK: Supple. Trachea is midline. CHEST/LUNGS: Clear to auscultation. There is no respiratory distress noted. HEART/CARDIOVASCULAR: Regular. There is no tachycardia. There is no gallop rub or murmur. ABDOMEN: Abdomen is soft, nontender. Patient has normal bowel sounds. There is no abdominal distention. Patient actively vomiting. SKIN: There is no rash. There is no edema. There is no diaphoresis. NEURO: The patient is awake, alert, and oriented. The patient is cooperative. The patient has no focal neurologic deficits. The patient has normal speech. Cranial nerves II through XII grossly intact. MUSCULOSKELETAL: There is no tenderness or deformity. There is no limitation range of motion. There is no evidence of acute injury. ED Course Vital Signs 06/20/17 06/20/17 06/20/17 13:42 14:01 14:08 Temperature 97.7 F 98.2 F Pulse Rate 81 69 Respiratory 24 14 Rate Blood Pressure 149/108 Blood Pressure 142/98 [Right] O2 Sat by Pulse 100 100 100 Oximetry 06/20/17 14:15 Temperature Pulse Rate 63 Respiratory 18 Rate Blood Pressure 152/95 Blood Pressure [Right] O2 Sat by Pulse 100 Oximetry ED Medical Decision Making - Lab Data Result diagrams: 06/20/17 13:54 06/20/17 13:54 - Radiology Data Radiology results: report reviewed Cranial CT without contrast. History: Severe headache, history of MUD MIXER OPERATOR shunt. Findings: Comparison is made to previous study on June 14, 2017. Postsurgical changes in the occipital and right frontal bone are again noted. There is no evidence of acute hemorrhage or infarct. The ventricular shunt tube is unchanged in position. The ventricles are normal in size and contour. The temporal horns are visible. There are no masses or extra-axial collections. The posterior fossa is unremarkable. No additional calvarial abnormalities. Impression: No acute findings or interval changes since June 14, 2017. - Medical Decision Making 26-year-old male presents with continued nausea and vomiting since he was discharged from here and more of an acute headache that occurred after a vomiting episode earlier today. He does not have any focal, motor or sensory deficits. His cranial nerves are intact. CT does not show any bleed, shift, mass or any hydrocephalus with his MUD MIXER OPERATOR shunt history. Vital signs stable. His labs do show a leukocytosis. It was elevated the last time she was here as well but it is slightly higher at 19,000. There is no left shift and no signs of infection seen at this time. Patient received Dilaudid, 8 mg of Zofran, 10 mg of Reglan, IV fluid and still continues to complain of headache and continues to have vomiting. There are some signs of dehydration. For this reason the patient will be admitted to the hospital for further evaluation and treatment and has been accepted for admission by the hospitalist, Dr garza. - Differential Diagnosis hydrocephalus, migraine, tension headache, viral syndrome Critical Care Time: No Critical care attestation.: If time is entered above; I have spent that time in minutes in the direct care of this critically ill patient, excluding procedure time. ED Disposition Clinical Impression: Dehydration Intractable nausea and vomiting Qualifiers: Vomiting type: unspecified Qualified Code(s): R11.2 - Nausea with vomiting, unspecified Headache Qualifiers: Headache type: unspecified Headache chronicity pattern: unspecified pattern Intractability: intractable Qualified Code(s): R51 - Headache Disposition: OP ADMIT IP TO THIS HOSP Is pt being admited?: Yes Condition: Stable Time of Disposition: 20:08
[2017-06-20] MEDS ORDERED: REGLAN IV ONE (18:19)
[2017-06-20] MEDS ORDERED: MORPHINE IV ONE (18:32)
[2017-06-20 19:24] LABS: Bacteria,Urine 1+ /HPF (Negative); Bilirubin,Urine NEG (Negative); Blood,Urine NEG (Negative); Ketones,Urine 20 mg/dL (Negative); Leukocyte Esterase,Urine NEG (Negative); Mucus,Urine FEW /HPF; Nitrite,Urine NEG (Negative); Protein,Urine <15 mg/dL mg/dL (Negative); Urobilinogen,Urine < 2.0 mg/dL (<2.0)
--- NOTE | 2017-06-20 21:01 | History and Physical Report ---
History of Present Illness Date of examination: 06/20/17 Date of admission: 06/20/17 20:08 Chief complaint: CC Vomiting multiple times 1 day History of present illness: HPI This is a 26-year-old male who presents to the emergency department with complaint of nausea, vomiting and a posterior headache. Vomiting multiple times.Says he lost count The patient was here last week and had seizure activity that led to him being intubated. He was discharged last Sunday, 4 days ago, and says he has been having nausea and vomiting since that time. He does have a history of seizures from when he was younger and has a CRM ARCHITECT shunt in place. He was discharged home on seizure medication which he says he has been taking compliantly, as much as possible with the vomiting. Today he had an episode of vomiting where he feels like his head "snapped back" and started causing this headache. He otherwise has not taken anything for his symptoms prior to presentation. He denies any fever, vision change, slurred speech or any neurological deficits. - Past Medical History Previous Medical History?: Yes Hx Seizures: Yes - Surgical History Past Surgical History?: Yes Additional Surgical History: shunt to R. side head - Social History Smoking Status: Current Every Day Smoker Substance Use Type: Alcohol - Medications Home Medications: Home Medications Medication Instructions Recorded Confirmed Last Taken Type Cyclobenzaprine [Flexeril 10 MG 5 mg PO Q8H PRN #90 tablet 06/17/17 Unknown Rx TAB] Pantoprazole [Protonix] 40 mg PO QDAY #30 tablet 06/17/17 Unknown Rx levETIRAcetam [Keppra TAB] 500 mg PO BID #60 tablet 06/17/17 Unknown Rx oxyCODONE /ACETAMINOPHEN [Percocet 1 tab PO Q4H PRN #14 tablet 06/17/17 Unknown Rx 5/325 mg] Review of Systems Stated complaint: HEAD PAIN Other details as noted in HPI Comment: All other systems reviewed and negative Constitutional: denies: chills, fever Eyes: denies: eye pain, eye discharge, vision change ENT: denies: ear pain, throat pain Respiratory: denies: cough, shortness of breath, wheezing Cardiovascular: denies: chest pain, palpitations Gastrointestinal: nausea, vomiting Genitourinary: denies: urgency, dysuria Musculoskeletal: denies: back pain, joint swelling, arthralgia Skin: denies: rash, lesions Neurological: headache. denies: weakness, numbness Medications and Allergies Allergies Allergy/AdvReac Type Severity Reaction Status Date / Time codeine Allergy Hives Verified 02/19/14 12:53 Home Medications Medication Instructions Recorded Confirmed Last Taken Type Cyclobenzaprine [Flexeril 10 MG 5 mg PO Q8H PRN #90 tablet 06/17/17 Unknown Rx TAB] Pantoprazole [Protonix] 40 mg PO QDAY #30 tablet 06/17/17 Unknown Rx levETIRAcetam [Keppra TAB] 500 mg PO BID #60 tablet 06/17/17 Unknown Rx oxyCODONE /ACETAMINOPHEN [Percocet 1 tab PO Q4H PRN #14 tablet 06/17/17 Unknown Rx 5/325 mg] Exam - Constitutional Vitals: Temp Pulse Resp BP Pulse Ox 98.2 F 63 18 127/91 98 06/20/17 14:08 06/20/17 14:15 06/20/17 14:15 06/20/17 18:48 06/20/17 18:48 General appearance: Present: well-nourished - EENT Eyes: Present: PERRL ENT: hearing intact, clear oral mucosa - Neck Neck: Present: supple, normal ROM - Respiratory Respiratory effort: normal Respiratory: bilateral: CTA - Cardiovascular Heart rate: 90 Rhythm: regular Heart Sounds: Present: S1 & S2. Absent: rub, click - Extremities Extremities: no ischemia, pulses intact, pulses symmetrical, No edema Peripheral Pulses: within normal limits - Abdominal General gastrointestinal: Present: soft, non-tender, non-distended, normal bowel sounds Male genitourinary: Present: normal - Rectal Rectal Exam: deferred - Integumentary Integumentary: Present: clear, warm, dry - Musculoskeletal Musculoskeletal: gait normal, strength equal bilaterally - Psychiatric Psychiatric: appropriate mood/affect, intact judgment & insight - Neurologic Neurologic: CNII-XII intact, moves all extremities - Allied Health Allied health notes reviewed: nursing, case management Results - Labs CBC & Chem 7: 06/21/17 04:31 06/21/17 04:31 Labs: Laboratory Last Values WBC 19.7 K/mm3 (4.5-11.0) H 06/20/17 13:54 RBC 5.45 M/mm3 (3.65-5.03) H 06/20/17 13:54 Hgb 16.9 gm/dl (11.8-15.2) H 06/20/17 13:54 Hct 50.1 % (35.5-45.6) H 06/20/17 13:54 MCV 92 fl (84-94) 06/20/17 13:54 MCH 31 pg (28-32) 06/20/17 13:54 MCHC 34 % (32-34) 06/20/17 13:54 RDW 12.6 % (13.2-15.2) L 06/20/17 13:54 Plt Count 338 K/mm3 (140-440) 06/20/17 13:54 [place] % (Auto) Oiler Helper 06/20/17 13:54 Eos % (Auto) Oiler Helper 06/20/17 13:54 Lymph # Oiler Helper 06/20/17 13:54 [place] # Oiler Helper 06/20/17 13:54 Eos # Oiler Helper 06/20/17 13:54 Add Manual Diff Complete 06/20/17 13:54 Total Counted 100 06/20/17 13:54 Seg Neutrophils % Oiler Helper 06/20/17 13:54 Seg Neuts % (Manual) 58.0 % (40.0-70.0) 06/20/17 13:54 Band Neutrophils % 0 % 06/20/17 13:54 Lymphocytes % (Manual) 30.0 % (13.4-35.0) 06/20/17 13:54 Reactive Lymphs % (Man) 3.0 % 06/20/17 13:54 Monocytes % (Manual) 7.0 % (0.0-7.3) 06/20/17 13:54 Eosinophils % (Manual) 2.0 % (0.0-4.3) 06/20/17 13:54 Basophils % (Manual) 0 % (0.0-1.8) 06/20/17 13:54 Metamyelocytes % 0 % 06/20/17 13:54 Myelocytes % 0 % 06/20/17 13:54 Promyelocytes % 0 % 06/20/17 13:54 Blast Cells % 0 % 06/20/17 13:54 Nucleated RBC % Not Reportable 06/20/17 13:54 Seg Neutrophils # Oiler Helper 06/20/17 13:54 Seg Neutrophils # Man 11.4 K/mm3 (1.8-7.7) H 06/20/17 13:54 Band Neutrophils # 0.0 K/mm3 06/20/17 13:54 Lymphocytes # (Manual) 5.9 K/mm3 (1.2-5.4) H 06/20/17 13:54 Abs React Lymphs (Man) 0.6 K/mm3 06/20/17 13:54 Monocytes # (Manual) 1.4 K/mm3 (0.0-0.8) H 06/20/17 13:54 Eosinophils # (Manual) 0.4 K/mm3 (0.0-0.4) 06/20/17 13:54 Basophils # (Manual) 0.0 K/mm3 (0.0-0.1) 06/20/17 13:54 Metamyelocytes # 0.0 K/mm3 06/20/17 13:54 Myelocytes # 0.0 K/mm3 06/20/17 13:54 Promyelocytes # 0.0 K/mm3 06/20/17 13:54 Blast Cells # 0.0 K/mm3 06/20/17 13:54 WBC Morphology Not Reportable 06/20/17 13:54 Hypersegmented Neuts Not Reportable 06/20/17 13:54 Hyposegmented Neuts Not Reportable 06/20/17 13:54 Hypogranular Neuts Not Reportable 06/20/17 13:54 Smudge Cells Not Reportable 06/20/17 13:54 Toxic Granulation Not Reportable 06/20/17 13:54 Toxic Vacuolation Not Reportable 06/20/17 13:54 Dohle Bodies Not Reportable 06/20/17 13:54 Pelger-Huet Anomaly Not Reportable 06/20/17 13:54 Bijal Rods Not Reportable 06/20/17 13:54 Platelet Estimate Not Reportable 06/20/17 13:54 Clumped Platelets Not Reportable 06/20/17 13:54 Plt Clumps, EDTA Not Reportable 06/20/17 13:54 Large Platelets Not Reportable 06/20/17 13:54 Giant Platelets Not Reportable 06/20/17 13:54 Platelet Satelliting Not Reportable 06/20/17 13:54 Plt Morphology Comment Not Reportable 06/20/17 13:54 RBC Morphology Normal 06/20/17 13:54 Dimorphic RBCs Not Reportable 06/20/17 13:54 Polychromasia Not Reportable 06/20/17 13:54 Hypochromasia Not Reportable 06/20/17 13:54 Poikilocytosis Not Reportable 06/20/17 13:54 Anisocytosis Not Reportable 06/20/17 13:54 Microcytosis Not Reportable 06/20/17 13:54 Macrocytosis Not Reportable 06/20/17 13:54 Spherocytes Not Reportable 06/20/17 13:54 Pappenheimer Bodies Not Reportable 06/20/17 13:54 Sickle Cells Not Reportable 06/20/17 13:54 Target Cells Not Reportable 06/20/17 13:54 Tear Drop Cells Not Reportable 06/20/17 13:54 Ovalocytes Not Reportable 06/20/17 13:54 Helmet Cells Not Reportable 06/20/17 13:54 [place] Bodies Not Reportable 06/20/17 13:54 [place] Rings Not Reportable 06/20/17 13:54 [place] Cells Not Reportable 06/20/17 13:54 Bite Cells Not Reportable 06/20/17 13:54 Crenated Cell Not Reportable 06/20/17 13:54 Elliptocytes Not Reportable 06/20/17 13:54 Acanthocytes (Spur) Not Reportable 06/20/17 13:54 Rouleaux Not Reportable 06/20/17 13:54 Hemoglobin C Crystals Not Reportable 06/20/17 13:54 Schistocytes Not Reportable 06/20/17 13:54 Malaria parasites Not Reportable 06/20/17 13:54 [place] Bodies Not Reportable 06/20/17 13:54 Hem Pathologist Commnt No 06/20/17 13:54 Sodium 139 mmol/L (137-145) 06/20/17 13:54 Potassium 3.8 mmol/L (3.6-5.0) 06/20/17 13:54 Chloride 97.5 mmol/L (98-107) L 06/20/17 13:54 Carbon Dioxide 21 mmol/L (22-30) L 06/20/17 13:54 Anion Gap 24 mmol/L 06/20/17 13:54 BUN 13 mg/dL (9-20) 06/20/17 13:54 Creatinine 0.9 mg/dL (0.8-1.5) 06/20/17 13:54 Estimated GFR > 60 ml/min 06/20/17 13:54 BUN/Creatinine Ratio 14 % 06/20/17 13:54 Glucose 126 mg/dL (75-100) H 06/20/17 13:54 POC Glucose 128 (70-105) H 06/20/17 14:16 Calcium 9.5 mg/dL (8.4-10.2) 06/20/17 13:54 Urine Color Yellow (Yellow) 06/20/17 18:54 Urine Turbidity Clear (Clear) 06/20/17 18:54 Urine pH 8.0 (5.0-7.0) H 06/20/17 18:54 Ur Specific [place] 1.018 (1.003-1.030) 06/20/17 18:54 Urine Protein <15 mg/dl mg/dL (Negative) 06/20/17 18:54 Urine Glucose (UA) Neg mg/dL (Negative) 06/20/17 18:54 Urine Ketones 20 mg/dL (Negative) 06/20/17 18:54 Urine Blood Neg (Negative) 06/20/17 18:54 Urine Nitrite Neg (Negative) 06/20/17 18:54 Urine Bilirubin Neg (Negative) 06/20/17 18:54 Urine Urobilinogen < 2.0 mg/dL (<2.0) 06/20/17 18:54 Ur Leukocyte Esterase Neg (Negative) 06/20/17 18:54 Urine WBC (Auto) 4.0 /HPF (0.0-6.0) 06/20/17 18:54 Urine RBC (Auto) 1.0 /HPF (0.0-6.0) 06/20/17 18:54 U Epithel Cells (Auto) < 1.0 /HPF (0-13.0) 06/20/17 18:54 Urine Bacteria (Auto) 1+ /HPF (Negative) 06/20/17 18:54 Urine Mucus Few /HPF 06/20/17 18:54 Short CBC 06/20/17 06/21/17 Range/Units 13:54 04:31 WBC 19.7 H 15.0 H (4.5-11.0) K/mm3 Hgb 16.9 H 15.0 (11.8-15.2) gm/dl Hct 50.1 H 45.6 (35.5-45.6) % Plt Count 338 267 (140-440) K/mm3 BMP 06/20/17 06/21/17 13:54 04:31 Sodium 139 135 L Potassium 3.8 5.1 H D Chloride 97.5 L 102.0 Carbon Dioxide 21 L 19 L BUN 13 10 Creatinine 0.9 0.7 L Glucose 126 H 138 H Calcium 9.5 8.4 Liver Function 06/21/17 Range/Units 04:31 Total Bilirubin 0.50 (0.1-1.2) mg/dL AST 28 (5-40) units/L ALT 31 (7-56) units/L Alkaline Phosphatase 52 (35-129) units/L Albumin 3.6 L (3.9-5) g/dL Urine 06/20/17 Range/Units 18:54 Urine Color Yellow (Yellow) Urine pH 8.0 H (5.0-7.0) Ur Specific [place] 1.018 (1.003-1.030) Urine Protein <15 mg/dl (Negative) mg/dL Urine Glucose (UA) Neg (Negative) mg/dL - Imaging and Cardiology CT Scan - head: report reviewed (NAF) Assessment and Plan Advance Directives: Yes (Full code) VTE prophylaxis?: Chemical Plan of care discussed with patient/family: Yes - Patient Problems (1) Intractable nausea and vomiting Current Visit: Yes Status: Acute Qualifiers: Vomiting type: unspecified Qualified Code(s): R11.2 - Nausea with vomiting , unspecified Plan to address problem: Treat symptomatically WithIV fluids andIV Zofran Also Protonix IV (2) Dehydration Current Visit: Yes Status: Acute Plan to address problem: As Above (3) Headache Current Visit: Yes Status: Acute Qualifiers: Headache type: tension-type Headache chronicity pattern: unspecified pattern Intractability: intractable Qualified Code(s): G44.201 - Tension- type headache, unspecified, intractable Plan to address problem: Fiorcet tid prn (4) Gastritis Current Visit: Yes Status: Acute Qualifiers: Gastritis type: G Chronicity: acute Gastritis bleeding: G Plan to address problem: IV protonix (5) Seizure disorder Current Visit: Yes Status: Chronic Plan to address problem: Continue seizure meds and if necessary switch to IV meds (6) DVT prophylaxis Current Visit: Yes Status: Acute Plan to address problem: On Lovenox
[2017-06-20] MEDS ORDERED: MILK OF MAGNESIA PO PRN ×2 (21:02→21:04)
[2017-06-20] MEDS ORDERED: DULCOLAX PR PRN ×2 (21:02→21:04)
[2017-06-20] MEDS ORDERED: ZOFRAN IV PRN (21:02)
[2017-06-20] MEDS ORDERED: TYLENOL PO PRN ×2 (21:02→21:04)
[2017-06-20] MEDS: D5NS 1,000 ML IV SCH (22:03)
[2017-06-20] MEDS: KEPPRA PO SCH (22:03)
[2017-06-20] MEDS: PEPCID IV SCH (22:03)
[2017-06-20] MEDS: ZOFRAN IV PRN (22:03)
[2017-06-20] MEDS: DILAUDID IV PRN (22:11)
[2017-06-21] MEDS: ZOFRAN IV PRN (05:01)
[2017-06-21] MEDS: DILAUDID IV PRN (05:01)
[2017-06-21] MEDS: D5NS 1,000 ML IV SCH ×3 (05:03→19:20)
[2017-06-21 05:23] LABS: Albumin 3.6 g/dL (3.9-5); Albumin/Globulin Ratio 1.2 %; BUN/Creatinine Ratio 14; Blood Urea Nitrogen 10 mg/dL (9-20); Calcium 8.4 mg/dL (8.4-10.2); Carbon Dioxide 19 mmol/L (22-30); Glucose 138 mg/dL (75-100); Total Protein 6.5 g/dL (6.3-8.2)
[2017-06-21 05:24] LABS: Sodium 135 mmol/L (137-145)
[2017-06-21 05:25] LABS: Mean Corpuscular HGB Conc 34 % (32-34); Mean Corpuscular Hemoglobin 31 pg (28-32); Mean Corpuscular Volume 91 fl (84-94); Red Blood Count 4.82 M/mm3 (3.65-5.03); Red Cell Distribution Width 12.7 % (13.2-15.2)
[2017-06-21 05:28] LABS: Hematocrit 45.6 % (35.5-45.6); Platelet Count 267 K/mm3 (140-440)
[2017-06-21 05:31] LABS: Diff Status Complete; Eosinophils % (Auto) 1.7 % (0.0-4.3)
[2017-06-21 05:32] LABS: Basophils % (Auto) 0.5 % (0.0-1.8)
[2017-06-21 05:33] LABS: Alanine Aminotransferase 31 units/L (7-56); Alkaline Phosphatase 52 units/L (35-129); Anion Gap 19 mmol/L; Potassium 5.1 mmol/L (3.6-5.0)
[2017-06-21 08:32] LABS: Anion Gap 16 mmol/L; BUN/Creatinine Ratio 13; Blood Urea Nitrogen 10 mg/dL (9-20); Calcium 8.5 mg/dL (8.4-10.2); Carbon Dioxide 24 mmol/L (22-30); Chloride 105.2 mmol/L (98-107); Glucose 125 mg/dL (75-100); Potassium 4.2 mmol/L (3.6-5.0); Sodium 141 mmol/L (137-145)
[2017-06-21] MEDS: PEPCID IV SCH ×2 (10:36→21:06)
[2017-06-21] MEDS: KEPPRA PO SCH ×2 (10:36→21:04)
--- NOTE | 2017-06-21 13:33 | Progress Note ---
Assessment and Plan Assessment and plan: Nausea and vomiting. Etiology unclear. Zofran iv prn Headache. CT head unremarkable. Continue symptomatic treatment. Consult Dr. Nair, Neurology. No fever Seizure disorder. Continue Keppra. Dehydration from nausea and vomiting. Started on iv Fluids Full code status Discussed with ptient and mother at bedside. History Interval history: Nausea Vomiting Headache Hospitalist Physical - Physical exam Narrative exam: Gen Appearance: Not in acute distress, HEENT: normocephalic, atraumatic Neck: supple, no JVD Lungs: Clear to auscultation, bilaterally, no rales, no wheezing Heart: S1 and S2 regular, no murmurs, rubs or gallop Abdomen: Soft , non tender, non distended, normal bowel sounds Extremity: No edema, No clubbing or cyanosis Neuro : Awake,alert, oriented x 3, moves all extremities - Constitutional Vitals: Temp Pulse Resp BP Pulse Ox 98.2 F 70 16 134/90 98 06/21/17 07:51 06/21/17 07:51 06/21/17 07:51 06/21/17 07:51 06/21/17 07:51 General appearance: Present: well-nourished Results - Labs CBC & Chem 7: 06/21/17 04:31 06/21/17 07:53 Labs: Laboratory Last Values WBC 15.0 K/mm3 (4.5-11.0) H 06/21/17 04:31 RBC 4.82 M/mm3 (3.65-5.03) 06/21/17 04:31 Hgb 15.0 gm/dl (11.8-15.2) 06/21/17 04:31 Hct 45.6 % (35.5-45.6) 06/21/17 04:31 MCV 91 fl (84-94) 06/21/17 04:31 MCH 31 pg (28-32) 06/21/17 04:31 MCHC 34 % (32-34) 06/21/17 04:31 RDW 12.7 % (13.2-15.2) L 06/21/17 04:31 Plt Count 267 K/mm3 (140-440) 06/21/17 04:31 Lymph % (Auto) 17.7 % (13.4-35.0) 06/21/17 04:31 [place] % (Auto) 6.6 % (0.0-7.3) 06/21/17 04:31 Eos % (Auto) 1.7 % (0.0-4.3) 06/21/17 04:31 Baso % (Auto) 0.5 % (0.0-1.8) 06/21/17 04:31 Lymph # 2.7 K/mm3 (1.2-5.4) 06/21/17 04:31 [place] # 1.0 K/mm3 (0.0-0.8) H 06/21/17 04:31 Eos # 0.3 K/mm3 (0.0-0.4) 06/21/17 04:31 Baso # 0.1 K/mm3 (0.0-0.1) 06/21/17 04:31 Add Manual Diff Complete 06/21/17 04:31 Total Counted 100 06/20/17 13:54 Seg Neutrophils % 73.5 % (40.0-70.0) H 06/21/17 04:31 Seg Neuts % (Manual) 58.0 % (40.0-70.0) 06/20/17 13:54 Band Neutrophils % 0 % 06/20/17 13:54 Lymphocytes % (Manual) 30.0 % (13.4-35.0) 06/20/17 13:54 Reactive Lymphs % (Man) 3.0 % 06/20/17 13:54 Monocytes % (Manual) 7.0 % (0.0-7.3) 06/20/17 13:54 Eosinophils % (Manual) 2.0 % (0.0-4.3) 06/20/17 13:54 Basophils % (Manual) 0 % (0.0-1.8) 06/20/17 13:54 Metamyelocytes % 0 % 06/20/17 13:54 Myelocytes % 0 % 06/20/17 13:54 Promyelocytes % 0 % 06/20/17 13:54 Blast Cells % 0 % 06/20/17 13:54 Nucleated RBC % Not Reportable 06/20/17 13:54 Seg Neutrophils # 11.0 K/mm3 (1.8-7.7) H 06/21/17 04:31 Seg Neutrophils # Man 11.4 K/mm3 (1.8-7.7) H 06/20/17 13:54 Band Neutrophils # 0.0 K/mm3 06/20/17 13:54 Lymphocytes # (Manual) 5.9 K/mm3 (1.2-5.4) H 06/20/17 13:54 Abs React Lymphs (Man) 0.6 K/mm3 06/20/17 13:54 Monocytes # (Manual) 1.4 K/mm3 (0.0-0.8) H 06/20/17 13:54 Eosinophils # (Manual) 0.4 K/mm3 (0.0-0.4) 06/20/17 13:54 Basophils # (Manual) 0.0 K/mm3 (0.0-0.1) 06/20/17 13:54 Metamyelocytes # 0.0 K/mm3 06/20/17 13:54 Myelocytes # 0.0 K/mm3 06/20/17 13:54 Promyelocytes # 0.0 K/mm3 06/20/17 13:54 Blast Cells # 0.0 K/mm3 06/20/17 13:54 WBC Morphology Not Reportable 06/20/17 13:54 Hypersegmented Neuts Not Reportable 06/20/17 13:54 Hyposegmented Neuts Not Reportable 06/20/17 13:54 Hypogranular Neuts Not Reportable 06/20/17 13:54 Smudge Cells Not Reportable 06/20/17 13:54 Toxic Granulation Not Reportable 06/20/17 13:54 Toxic Vacuolation Not Reportable 06/20/17 13:54 Dohle Bodies Not Reportable 06/20/17 13:54 Pelger-Huet Anomaly Not Reportable 06/20/17 13:54 Bijal Rods Not Reportable 06/20/17 13:54 Platelet Estimate Not Reportable 06/20/17 13:54 Clumped Platelets Not Reportable 06/20/17 13:54 Plt Clumps, EDTA Not Reportable 06/20/17 13:54 Large Platelets Not Reportable 06/20/17 13:54 Giant Platelets Not Reportable 06/20/17 13:54 Platelet Satelliting Not Reportable 06/20/17 13:54 Plt Morphology Comment Not Reportable 06/20/17 13:54 RBC Morphology Normal 06/20/17 13:54 Dimorphic RBCs Not Reportable 06/20/17 13:54 Polychromasia Not Reportable 06/20/17 13:54 Hypochromasia Not Reportable 06/20/17 13:54 Poikilocytosis Not Reportable 06/20/17 13:54 Anisocytosis Not Reportable 06/20/17 13:54 Microcytosis Not Reportable 06/20/17 13:54 Macrocytosis Not Reportable 06/20/17 13:54 Spherocytes Not Reportable 06/20/17 13:54 Pappenheimer Bodies Not Reportable 06/20/17 13:54 Sickle Cells Not Reportable 06/20/17 13:54 Target Cells Not Reportable 06/20/17 13:54 Tear Drop Cells Not Reportable 06/20/17 13:54 Ovalocytes Not Reportable 06/20/17 13:54 Helmet Cells Not Reportable 06/20/17 13:54 [place] Bodies Not Reportable 06/20/17 13:54 [place] Rings Not Reportable 06/20/17 13:54 Rob Cells Not Reportable 06/20/17 13:54 Bite Cells Not Reportable 06/20/17 13:54 Crenated Cell Not Reportable 06/20/17 13:54 Elliptocytes Not Reportable 06/20/17 13:54 Acanthocytes (Spur) Not Reportable 06/20/17 13:54 Rouleaux Not Reportable 06/20/17 13:54 Hemoglobin C Crystals Not Reportable 06/20/17 13:54 Schistocytes Not Reportable 06/20/17 13:54 Malaria parasites Not Reportable 06/20/17 13:54 [place]ogo Bodies Not Reportable 06/20/17 13:54 Hem Pathologist Commnt No 06/20/17 13:54 Sodium 141 mmol/L (137-145) 06/21/17 07:53 Potassium 4.2 mmol/L (3.6-5.0) 06/21/17 07:53 Chloride 105.2 mmol/L (98-107) 06/21/17 07:53 Carbon Dioxide 24 mmol/L (22-30) 06/21/17 07:53 Anion Gap 16 mmol/L 06/21/17 07:53 BUN 10 mg/dL (9-20) 06/21/17 07:53 Creatinine 0.8 mg/dL (0.8-1.5) 06/21/17 07:53 Estimated GFR > 60 ml/min 06/21/17 07:53 BUN/Creatinine Ratio 13 % 06/21/17 07:53 Glucose 125 mg/dL (75-100) H 06/21/17 07:53 POC Glucose 132 (70-105) H 06/21/17 06:18 Calcium 8.5 mg/dL (8.4-10.2) 06/21/17 07:53 Total Bilirubin 0.50 mg/dL (0.1-1.2) 06/21/17 04:31 AST 28 units/L (5-40) 06/21/17 04:31 ALT 31 units/L (7-56) 06/21/17 04:31 Alkaline Phosphatase 52 units/L (35-129) 06/21/17 04:31 Total Protein 6.5 g/dL (6.3-8.2) 06/21/17 04:31 Albumin 3.6 g/dL (3.9-5) L 06/21/17 04:31 Albumin/Globulin Ratio 1.2 % 06/21/17 04:31 Urine Color Yellow (Yellow) 06/20/17 18:54 Urine Turbidity Clear (Clear) 06/20/17 18:54 Urine pH 8.0 (5.0-7.0) H 06/20/17 18:54 Ur Specific [place] 1.018 (1.003-1.030) 06/20/17 18:54 Urine Protein <15 mg/dl mg/dL (Negative) 06/20/17 18:54 Urine Glucose (UA) Neg mg/dL (Negative) 06/20/17 18:54 Urine Ketones 20 mg/dL (Negative) 06/20/17 18:54 Urine Blood Neg (Negative) 06/20/17 18:54 Urine Nitrite Neg (Negative) 06/20/17 18:54 Urine Bilirubin Neg (Negative) 06/20/17 18:54 Urine Urobilinogen < 2.0 mg/dL (<2.0) 06/20/17 18:54 Ur Leukocyte Esterase Neg (Negative) 06/20/17 18:54 Urine WBC (Auto) 4.0 /HPF (0.0-6.0) 06/20/17 18:54 Urine RBC (Auto) 1.0 /HPF (0.0-6.0) 06/20/17 18:54 U Epithel Cells (Auto) < 1.0 /HPF (0-13.0) 06/20/17 18:54 Urine Bacteria (Auto) 1+ /HPF (Negative) 06/20/17 18:54 Urine Mucus Few /HPF 06/20/17 18:54
--- NOTE | 2017-06-21 15:06 | Consultation ---
History of Present Illness - Reason for Consult Consult date: 06/21/17 headaches - History of Present Illness patient seen and Irember him well from prior admission since I saw him.... symptom,s are from Chiari malformation !!! he does have functioning [employer] shunt Medications and Allergies Allergies Allergy/AdvReac Type Severity Reaction Status Date / Time codeine Allergy Hives Verified 02/19/14 12:53 Home Medications Medication Instructions Recorded Confirmed Last Taken Type Cyclobenzaprine [Flexeril 10 MG 5 mg PO Q8H PRN #90 tablet 06/17/17 Unknown Rx TAB] Pantoprazole [Protonix] 40 mg PO QDAY #30 tablet 06/17/17 Unknown Rx levETIRAcetam [Keppra TAB] 500 mg PO BID #60 tablet 06/17/17 Unknown Rx oxyCODONE /ACETAMINOPHEN [Percocet 1 tab PO Q4H PRN #14 tablet 06/17/17 Unknown Rx 5/325 mg] Active Meds: Active Medications Acetaminophen (Tylenol) 650 mg PO Q4H PRN PRN Reason: Pain MILD(1-3)/Fever >100.5/MARK Bisacodyl (Dulcolax) 10 mg [place] QDAY PRN PRN Reason: Constipation unrelieved by MOM Cyclobenzaprine HCl (Flexeril) 5 mg PO Q8H PRN PRN Reason: Muscle Spasm Famotidine (Pepcid) 20 mg IV BID [facility] Last Admin: 06/21/17 10:36 Dose: 20 mg Hydromorphone HCl (Dilaudid) 0.5 mg IV Q3H PRN PRN Reason: Pain , Severe (7-10) Last Admin: 06/21/17 05:01 Dose: 0.5 mg Dextrose/Sodium Chloride (D5ns) 1,000 mls @ 125 mls/hr IV DIRECT [facility] Last Admin: 06/21/17 11:50 Dose: 125 mls/hr Levetiracetam (Keppra) 750 mg PO BID [facility] Last Admin: 06/21/17 10:36 Dose: 750 mg Magnesium Hydroxide (Milk Of Magnesia) 30 ml PO Q4H PRN PRN Reason: Constipation Ondansetron HCl (Zofran) 4 mg IV Q8H PRN PRN Reason: N/V unrelieved by Reglan Oxycodone/Acetaminophen (Percocet 5/325) 1 tab PO Q4H PRN PRN Reason: Pain, Moderate (4-6) Zolpidem Tartrate (Ambien) 5 mg PO QHS PRN PRN Reason: Insomnia Exam - Constitutional Vitals: Temp Pulse Resp BP Pulse Ox 98.2 F 70 16 134/90 98 06/21/17 07:51 06/21/17 07:51 06/21/17 07:51 06/21/17 07:51 06/21/17 07:51 Results - Labs CBC & Chem 7: 06/21/17 04:31 06/21/17 07:53 Labs: Abnormal lab results 06/21/17 06/21/17 06/21/17 Range/Units 04:31 04:31 06:18 WBC 15.0 H (4.5-11.0) K/mm3 RDW 12.7 L (13.2-15.2) % [place] # 1.0 H (0.0-0.8) K/mm3 Seg Neutrophils % 73.5 H (40.0-70.0) % Seg Neutrophils # 11.0 H (1.8-7.7) K/mm3 Sodium 135 L (137-145) mmol/L Potassium 5.1 H D (3.6-5.0) mmol/L Carbon Dioxide 19 L (22-30) mmol/L Creatinine 0.7 L (0.8-1.5) mg/dL Glucose 138 H (75-100) mg/dL POC Glucose 132 H (70-105) Albumin 3.6 L (3.9-5) g/dL 06/21/17 Range/Units 07:53 WBC (4.5-11.0) K/mm3 RDW (13.2-15.2) % [place] # (0.0-0.8) K/mm3 Seg Neutrophils % (40.0-70.0) % Seg Neutrophils # (1.8-7.7) K/mm3 Sodium (137-145) mmol/L Potassium (3.6-5.0) mmol/L Carbon Dioxide (22-30) mmol/L Creatinine (0.8-1.5) mg/dL Glucose 125 H (75-100) mg/dL POC Glucose (70-105) Albumin (3.9-5) g/dL
[2017-06-21] MEDS: AMBIEN PO PRN (21:03)
[2017-06-22] MEDS: D5NS 1,000 ML IV SCH ×2 (02:20→10:38)
[2017-06-22] MEDS: DILAUDID IV PRN ×2 (03:09→12:22)
[2017-06-22] MEDS: KEPPRA PO SCH ×2 (09:22→21:44)
[2017-06-22] MEDS: PEPCID IV SCH (09:22)
[2017-06-22] MEDS: PERCOCET 5/325 PO PRN ×2 (09:23→21:46)
[2017-06-22] MEDS: FLEXERIL PO PRN (12:21)
--- NOTE | 2017-06-22 13:00 | Progress Note ---
Assessment and Plan Assessment and plan: Nausea and vomiting. Likely due to gastritis. Zofran iv prn Gastritis likely. Continue Pepcid Headache. CT head unremarkable. Continue symptomatic treatment. Consulted Dr. Nair, Neurology and he was evaluated by him. Continue current management. Seizure disorder. Continue Keppra. Dehydration from nausea and vomiting. Continue iv fluids Full code status Discussed with patient. History Interval history: Nausea Vomiting subsided Still having headache Hospitalist Physical - Physical exam Narrative exam: Gen Appearance: Not in acute distress, HEENT: normocephalic, atraumatic Neck: supple, no JVD Lungs: Clear to auscultation, bilaterally, no rales, no wheezing Heart: S1 and S2 regular, no murmurs, rubs or gallop Abdomen: Soft , non tender, non distended, normal bowel sounds Extremity: No edema, No clubbing or cyanosis Neuro : Awake,alert, oriented x 3, moves all extremities - Constitutional Vitals: Temp Pulse Resp BP Pulse Ox 98.5 F 72 16 135/94 97 06/22/17 08:07 06/22/17 08:07 06/22/17 08:07 06/22/17 08:07 06/22/17 08:07 General appearance: Present: well-nourished Results - Labs CBC & Chem 7: 06/21/17 04:31 06/21/17 07:53 Labs: Laboratory Last Values WBC 15.0 K/mm3 (4.5-11.0) H 06/21/17 04:31 RBC 4.82 M/mm3 (3.65-5.03) 06/21/17 04:31 Hgb 15.0 gm/dl (11.8-15.2) 06/21/17 04:31 Hct 45.6 % (35.5-45.6) 06/21/17 04:31 MCV 91 fl (84-94) 06/21/17 04:31 MCH 31 pg (28-32) 06/21/17 04:31 MCHC 34 % (32-34) 06/21/17 04:31 RDW 12.7 % (13.2-15.2) L 06/21/17 04:31 Plt Count 267 K/mm3 (140-440) 06/21/17 04:31 Lymph % (Auto) 17.7 % (13.4-35.0) 06/21/17 04:31 [place] % (Auto) 6.6 % (0.0-7.3) 06/21/17 04:31 Eos % (Auto) 1.7 % (0.0-4.3) 06/21/17 04:31 Baso % (Auto) 0.5 % (0.0-1.8) 06/21/17 04:31 Lymph # 2.7 K/mm3 (1.2-5.4) 06/21/17 04:31 [place] # 1.0 K/mm3 (0.0-0.8) H 06/21/17 04:31 Eos # 0.3 K/mm3 (0.0-0.4) 06/21/17 04:31 Baso # 0.1 K/mm3 (0.0-0.1) 06/21/17 04:31 Add Manual Diff Complete 06/21/17 04:31 Total Counted 100 06/20/17 13:54 Seg Neutrophils % 73.5 % (40.0-70.0) H 06/21/17 04:31 Seg Neuts % (Manual) 58.0 % (40.0-70.0) 06/20/17 13:54 Band Neutrophils % 0 % 06/20/17 13:54 Lymphocytes % (Manual) 30.0 % (13.4-35.0) 06/20/17 13:54 Reactive Lymphs % (Man) 3.0 % 06/20/17 13:54 Monocytes % (Manual) 7.0 % (0.0-7.3) 06/20/17 13:54 Eosinophils % (Manual) 2.0 % (0.0-4.3) 06/20/17 13:54 Basophils % (Manual) 0 % (0.0-1.8) 06/20/17 13:54 Metamyelocytes % 0 % 06/20/17 13:54 Myelocytes % 0 % 06/20/17 13:54 Promyelocytes % 0 % 06/20/17 13:54 Blast Cells % 0 % 06/20/17 13:54 Nucleated RBC % Not Reportable 06/20/17 13:54 Seg Neutrophils # 11.0 K/mm3 (1.8-7.7) H 06/21/17 04:31 Seg Neutrophils # Man 11.4 K/mm3 (1.8-7.7) H 06/20/17 13:54 Band Neutrophils # 0.0 K/mm3 06/20/17 13:54 Lymphocytes # (Manual) 5.9 K/mm3 (1.2-5.4) H 06/20/17 13:54 Abs React Lymphs (Man) 0.6 K/mm3 06/20/17 13:54 Monocytes # (Manual) 1.4 K/mm3 (0.0-0.8) H 06/20/17 13:54 Eosinophils # (Manual) 0.4 K/mm3 (0.0-0.4) 06/20/17 13:54 Basophils # (Manual) 0.0 K/mm3 (0.0-0.1) 06/20/17 13:54 Metamyelocytes # 0.0 K/mm3 06/20/17 13:54 Myelocytes # 0.0 K/mm3 06/20/17 13:54 Promyelocytes # 0.0 K/mm3 06/20/17 13:54 Blast Cells # 0.0 K/mm3 06/20/17 13:54 WBC Morphology Not Reportable 06/20/17 13:54 Hypersegmented Neuts Not Reportable 06/20/17 13:54 Hyposegmented Neuts Not Reportable 06/20/17 13:54 Hypogranular Neuts Not Reportable 06/20/17 13:54 Smudge Cells Not Reportable 06/20/17 13:54 Toxic Granulation Not Reportable 06/20/17 13:54 Toxic Vacuolation Not Reportable 06/20/17 13:54 Dohle Bodies Not Reportable 06/20/17 13:54 Pelger-Huet Anomaly Not Reportable 06/20/17 13:54 Bijal Rods Not Reportable 06/20/17 13:54 Platelet Estimate Not Reportable 06/20/17 13:54 Clumped Platelets Not Reportable 06/20/17 13:54 Plt Clumps, EDTA Not Reportable 06/20/17 13:54 Large Platelets Not Reportable 06/20/17 13:54 Giant Platelets Not Reportable 06/20/17 13:54 Platelet Satelliting Not Reportable 06/20/17 13:54 Plt Morphology Comment Not Reportable 06/20/17 13:54 RBC Morphology Normal 06/20/17 13:54 Dimorphic RBCs Not Reportable 06/20/17 13:54 Polychromasia Not Reportable 06/20/17 13:54 Hypochromasia Not Reportable 06/20/17 13:54 Poikilocytosis Not Reportable 06/20/17 13:54 Anisocytosis Not Reportable 06/20/17 13:54 Microcytosis Not Reportable 06/20/17 13:54 Macrocytosis Not Reportable 06/20/17 13:54 Spherocytes Not Reportable 06/20/17 13:54 Pappenheimer Bodies Not Reportable 06/20/17 13:54 Sickle Cells Not Reportable 06/20/17 13:54 Target Cells Not Reportable 06/20/17 13:54 Tear Drop Cells Not Reportable 06/20/17 13:54 Ovalocytes Not Reportable 06/20/17 13:54 Helmet Cells Not Reportable 06/20/17 13:54 [place] Bodies Not Reportable 06/20/17 13:54 [place] Rings Not Reportable 06/20/17 13:54 Rob Cells Not Reportable 06/20/17 13:54 Bite Cells Not Reportable 06/20/17 13:54 Crenated Cell Not Reportable 06/20/17 13:54 Elliptocytes Not Reportable 06/20/17 13:54 Acanthocytes (Spur) Not Reportable 06/20/17 13:54 Rouleaux Not Reportable 06/20/17 13:54 Hemoglobin C Crystals Not Reportable 06/20/17 13:54 Schistocytes Not Reportable 06/20/17 13:54 Malaria parasites Not Reportable 06/20/17 13:54 [place] Bodies Not Reportable 06/20/17 13:54 Hem Pathologist Commnt No 06/20/17 13:54 Sodium 141 mmol/L (137-145) 06/21/17 07:53 Potassium 4.2 mmol/L (3.6-5.0) 06/21/17 07:53 Chloride 105.2 mmol/L (98-107) 06/21/17 07:53 Carbon Dioxide 24 mmol/L (22-30) 06/21/17 07:53 Anion Gap 16 mmol/L 06/21/17 07:53 BUN 10 mg/dL (9-20) 06/21/17 07:53 Creatinine 0.8 mg/dL (0.8-1.5) 06/21/17 07:53 Estimated GFR > 60 ml/min 06/21/17 07:53 BUN/Creatinine Ratio 13 % 06/21/17 07:53 Glucose 125 mg/dL (75-100) H 06/21/17 07:53 POC Glucose 132 (70-105) H 06/21/17 06:18 Calcium 8.5 mg/dL (8.4-10.2) 06/21/17 07:53 Total Bilirubin 0.50 mg/dL (0.1-1.2) 06/21/17 04:31 AST 28 units/L (5-40) 06/21/17 04:31 ALT 31 units/L (7-56) 06/21/17 04:31 Alkaline Phosphatase 52 units/L (35-129) 06/21/17 04:31 Total Protein 6.5 g/dL (6.3-8.2) 06/21/17 04:31 Albumin 3.6 g/dL (3.9-5) L 06/21/17 04:31 Albumin/Globulin Ratio 1.2 % 06/21/17 04:31 Urine Color Yellow (Yellow) 06/20/17 18:54 Urine Turbidity Clear (Clear) 06/20/17 18:54 Urine pH 8.0 (5.0-7.0) H 06/20/17 18:54 Ur Specific [place] 1.018 (1.003-1.030) 06/20/17 18:54 Urine Protein <15 mg/dl mg/dL (Negative) 06/20/17 18:54 Urine Glucose (UA) Neg mg/dL (Negative) 06/20/17 18:54 Urine Ketones 20 mg/dL (Negative) 06/20/17 18:54 Urine Blood Neg (Negative) 06/20/17 18:54 Urine Nitrite Neg (Negative) 06/20/17 18:54 Urine Bilirubin Neg (Negative) 06/20/17 18:54 Urine Urobilinogen < 2.0 mg/dL (<2.0) 06/20/17 18:54 Ur Leukocyte Esterase Neg (Negative) 06/20/17 18:54 Urine WBC (Auto) 4.0 /HPF (0.0-6.0) 06/20/17 18:54 Urine RBC (Auto) 1.0 /HPF (0.0-6.0) 06/20/17 18:54 U Epithel Cells (Auto) < 1.0 /HPF (0-13.0) 06/20/17 18:54 Urine Bacteria (Auto) 1+ /HPF (Negative) 06/20/17 18:54 Urine Mucus Few /HPF 06/20/17 18:54
[2017-06-22] MEDS: AMBIEN PO PRN (21:40)
[2017-06-22] MEDS: PEPCID PO SCH (21:44)
[2017-06-23] MEDS: D5NS 1,000 ML IV SCH ×3 (01:51→17:06)
[2017-06-23] MEDS: DILAUDID IV PRN ×2 (08:39→21:21)
[2017-06-23] MEDS: PEPCID PO SCH ×2 (09:38→21:17)
[2017-06-23] MEDS: KEPPRA PO SCH ×2 (09:39→21:16)
--- NOTE | 2017-06-23 11:06 | Consultation ---
History of Present Illness - Reason for Consult Consult date: 06/23/17 shunt issue - History of Present Illness plan to repeat the CT of the head as it gives me more info on the shunt suspect headaches are shunt related will try Diamox Medications and Allergies Allergies Allergy/AdvReac Type Severity Reaction Status Date / Time codeine Allergy Hives Verified 02/19/14 12:53 Home Medications Medication Instructions Recorded Confirmed Last Taken Type Cyclobenzaprine [Flexeril 10 MG 5 mg PO Q8H PRN #90 tablet 06/17/17 06/21/1712/01 Rx TAB] Pantoprazole [Protonix] 40 mg PO QDAY #30 tablet 06/17/17 06/21/17 06/19/17 Rx levETIRAcetam [Keppra TAB] 500 mg PO BID #60 tablet 06/17/17 06/21/17 06/19/17 Rx oxyCODONE /ACETAMINOPHEN [Percocet 1 tab PO Q4H PRN #14 tablet 06/17/1706/18/17 Rx 5/325 mg] Active Meds: Active Medications Acetaminophen (Tylenol) 650 mg PO Q4H PRN PRN Reason: Pain MILD(1-3)/Fever >100.5/MARK Bisacodyl (Dulcolax) 10 mg [place] QDAY PRN PRN Reason: Constipation unrelieved by MOM Cyclobenzaprine HCl (Flexeril) 5 mg PO Q8H PRN PRN Reason: Muscle Spasm Last Admin: 06/22/17 12:21 Dose: 5 mg Famotidine (Pepcid) 20 mg PO BID [facility] Last Admin: 06/23/17 09:38 Dose: 20 mg Hydromorphone HCl (Dilaudid) 0.5 mg IV Q3H PRN PRN Reason: Pain , Severe (7-10) Last Admin: 06/23/17 08:39 Dose: 0.5 mg Dextrose/Sodium Chloride (D5ns) 1,000 mls @ 125 mls/hr IV DIRECT [facility] Last Admin: 06/23/17 09:38 Dose: 125 mls/hr Levetiracetam (Keppra) 750 mg PO BID [facility] Last Admin: 06/23/17 09:39 Dose: 750 mg Magnesium Hydroxide (Milk Of Magnesia) 30 ml PO Q4H PRN PRN Reason: Constipation Ondansetron HCl (Zofran) 4 mg IV Q8H PRN PRN Reason: N/V unrelieved by Reglan Oxycodone/Acetaminophen (Percocet 5/325) 1 tab PO Q4H PRN PRN Reason: Pain, Moderate (4-6) Last Admin: 06/22/17 21:46 Dose: 1 tab Zolpidem Tartrate (Ambien) 5 mg PO QHS PRN PRN Reason: Insomnia Last Admin: 06/22/17 21:40 Dose: 5 mg Exam - Constitutional Vitals: Temp Pulse Resp BP Pulse Ox 98.1 F 62 20 147/96 95 06/23/17 08:57 06/23/17 08:57 06/23/17 08:57 06/23/17 08:57 06/23/17 08:57 Results - Labs CBC & Chem 7: 06/21/17 04:31 06/21/17 07:53
--- NOTE | 2017-06-23 15:46 | Progress Note ---
Assessment and Plan Assessment and plan: Nausea and vomiting. Likely due to gastritis. Zofran iv prn Gastritis likely. Continue Pepcid bid. Headache. CT head unremarkable. Continue symptomatic treatment. Consulted Dr. Nair, Neurology and he was evaluated by him. Continue current management. Neurology following. headache has not improved. Leukocytosis. No source of infection. His WBC has been elevated even on previous admission. Will monitor. Seizure disorder. Continue Keppra. Dehydration from nausea and vomiting. Continue iv fluids Full code status Discussed with patient and family member at bedside.. History Interval history: Nausea Vomiting subsided Still having headache, persistent Hospitalist Physical - Physical exam Narrative exam: Gen Appearance: Not in acute distress, HEENT: normocephalic, atraumatic Neck: supple, no JVD Lungs: Clear to auscultation, bilaterally, no rales, no wheezing Heart: S1 and S2 regular, no murmurs, rubs or gallop Abdomen: Soft , non tender, non distended, normal bowel sounds Extremity: No edema, No clubbing or cyanosis Neuro : Awake,alert, oriented x 3, moves all extremities - Constitutional Vitals: Temp Pulse Resp BP Pulse Ox 99.1 F 68 20 143/102 99 06/23/17 15:27 06/23/17 15:27 06/23/17 15:27 06/23/17 15:27 06/23/17 15:27 General appearance: Present: well-nourished Results - Labs CBC & Chem 7: 06/21/17 04:31 06/21/17 07:53 Labs: Laboratory Last Values WBC 15.0 K/mm3 (4.5-11.0) H 06/21/17 04:31 RBC 4.82 M/mm3 (3.65-5.03) 06/21/17 04:31 Hgb 15.0 gm/dl (11.8-15.2) 06/21/17 04:31 Hct 45.6 % (35.5-45.6) 06/21/17 04:31 MCV 91 fl (84-94) 06/21/17 04:31 MCH 31 pg (28-32) 06/21/17 04:31 MCHC 34 % (32-34) 06/21/17 04:31 RDW 12.7 % (13.2-15.2) L 06/21/17 04:31 Plt Count 267 K/mm3 (140-440) 06/21/17 04:31 Lymph % (Auto) 17.7 % (13.4-35.0) 06/21/17 04:31 [place] % (Auto) 6.6 % (0.0-7.3) 06/21/17 04:31 Eos % (Auto) 1.7 % (0.0-4.3) 06/21/17 04:31 Baso % (Auto) 0.5 % (0.0-1.8) 06/21/17 04:31 Lymph # 2.7 K/mm3 (1.2-5.4) 06/21/17 04:31 [place] # 1.0 K/mm3 (0.0-0.8) H 06/21/17 04:31 Eos # 0.3 K/mm3 (0.0-0.4) 06/21/17 04:31 Baso # 0.1 K/mm3 (0.0-0.1) 06/21/17 04:31 Add Manual Diff Complete 06/21/17 04:31 Total Counted 100 06/20/17 13:54 Seg Neutrophils % 73.5 % (40.0-70.0) H 06/21/17 04:31 Seg Neuts % (Manual) 58.0 % (40.0-70.0) 06/20/17 13:54 Band Neutrophils % 0 % 06/20/17 13:54 Lymphocytes % (Manual) 30.0 % (13.4-35.0) 06/20/17 13:54 Reactive Lymphs % (Man) 3.0 % 06/20/17 13:54 Monocytes % (Manual) 7.0 % (0.0-7.3) 06/20/17 13:54 Eosinophils % (Manual) 2.0 % (0.0-4.3) 06/20/17 13:54 Basophils % (Manual) 0 % (0.0-1.8) 06/20/17 13:54 Metamyelocytes % 0 % 06/20/17 13:54 Myelocytes % 0 % 06/20/17 13:54 Promyelocytes % 0 % 06/20/17 13:54 Blast Cells % 0 % 06/20/17 13:54 Nucleated RBC % Not Reportable 06/20/17 13:54 Seg Neutrophils # 11.0 K/mm3 (1.8-7.7) H 06/21/17 04:31 Seg Neutrophils # Man 11.4 K/mm3 (1.8-7.7) H 06/20/17 13:54 Band Neutrophils # 0.0 K/mm3 06/20/17 13:54 Lymphocytes # (Manual) 5.9 K/mm3 (1.2-5.4) H 06/20/17 13:54 Abs React Lymphs (Man) 0.6 K/mm3 06/20/17 13:54 Monocytes # (Manual) 1.4 K/mm3 (0.0-0.8) H 06/20/17 13:54 Eosinophils # (Manual) 0.4 K/mm3 (0.0-0.4) 06/20/17 13:54 Basophils # (Manual) 0.0 K/mm3 (0.0-0.1) 06/20/17 13:54 Metamyelocytes # 0.0 K/mm3 06/20/17 13:54 Myelocytes # 0.0 K/mm3 06/20/17 13:54 Promyelocytes # 0.0 K/mm3 06/20/17 13:54 Blast Cells # 0.0 K/mm3 06/20/17 13:54 WBC Morphology Not Reportable 06/20/17 13:54 Hypersegmented Neuts Not Reportable 06/20/17 13:54 Hyposegmented Neuts Not Reportable 06/20/17 13:54 Hypogranular Neuts Not Reportable 06/20/17 13:54 Smudge Cells Not Reportable 06/20/17 13:54 Toxic Granulation Not Reportable 06/20/17 13:54 Toxic Vacuolation Not Reportable 06/20/17 13:54 Dohle Bodies Not Reportable 06/20/17 13:54 Pelger-Huet Anomaly Not Reportable 06/20/17 13:54 Bijal Rods Not Reportable 06/20/17 13:54 Platelet Estimate Not Reportable 06/20/17 13:54 Clumped Platelets Not Reportable 06/20/17 13:54 Plt Clumps, EDTA Not Reportable 06/20/17 13:54 Large Platelets Not Reportable 06/20/17 13:54 Giant Platelets Not Reportable 06/20/17 13:54 Platelet Satelliting Not Reportable 06/20/17 13:54 Plt Morphology Comment Not Reportable 06/20/17 13:54 RBC Morphology Normal 06/20/17 13:54 Dimorphic RBCs Not Reportable 06/20/17 13:54 Polychromasia Not Reportable 06/20/17 13:54 Hypochromasia Not Reportable 06/20/17 13:54 Poikilocytosis Not Reportable 06/20/17 13:54 Anisocytosis Not Reportable 06/20/17 13:54 Microcytosis Not Reportable 06/20/17 13:54 Macrocytosis Not Reportable 06/20/17 13:54 Spherocytes Not Reportable 06/20/17 13:54 Pappenheimer Bodies Not Reportable 06/20/17 13:54 Sickle Cells Not Reportable 06/20/17 13:54 Target Cells Not Reportable 06/20/17 13:54 Tear Drop Cells Not Reportable 06/20/17 13:54 Ovalocytes Not Reportable 06/20/17 13:54 Helmet Cells Not Reportable 06/20/17 13:54 [place] Bodies Not Reportable 06/20/17 13:54 [place] Rings Not Reportable 06/20/17 13:54 [place] Cells Not Reportable 06/20/17 13:54 Bite Cells Not Reportable 06/20/17 13:54 Crenated Cell Not Reportable 06/20/17 13:54 Elliptocytes Not Reportable 06/20/17 13:54 Acanthocytes (Spur) Not Reportable 06/20/17 13:54 Rouleaux Not Reportable 06/20/17 13:54 Hemoglobin C Crystals Not Reportable 06/20/17 13:54 Schistocytes Not Reportable 06/20/17 13:54 Malaria parasites Not Reportable 06/20/17 13:54 [place] Bodies Not Reportable 06/20/17 13:54 Hem Pathologist Commnt No 06/20/17 13:54 Sodium 141 mmol/L (137-145) 06/21/17 07:53 Potassium 4.2 mmol/L (3.6-5.0) 06/21/17 07:53 Chloride 105.2 mmol/L (98-107) 06/21/17 07:53 Carbon Dioxide 24 mmol/L (22-30) 06/21/17 07:53 Anion Gap 16 mmol/L 06/21/17 07:53 BUN 10 mg/dL (9-20) 06/21/17 07:53 Creatinine 0.8 mg/dL (0.8-1.5) 06/21/17 07:53 Estimated GFR > 60 ml/min 06/21/17 07:53 BUN/Creatinine Ratio 13 % 06/21/17 07:53 Glucose 125 mg/dL (75-100) H 06/21/17 07:53 POC Glucose 132 (70-105) H 06/21/17 06:18 Calcium 8.5 mg/dL (8.4-10.2) 06/21/17 07:53 Total Bilirubin 0.50 mg/dL (0.1-1.2) 06/21/17 04:31 AST 28 units/L (5-40) 06/21/17 04:31 ALT 31 units/L (7-56) 06/21/17 04:31 Alkaline Phosphatase 52 units/L (35-129) 06/21/17 04:31 Total Protein 6.5 g/dL (6.3-8.2) 06/21/17 04:31 Albumin 3.6 g/dL (3.9-5) L 06/21/17 04:31 Albumin/Globulin Ratio 1.2 % 06/21/17 04:31 Urine Color Yellow (Yellow) 06/20/17 18:54 Urine Turbidity Clear (Clear) 06/20/17 18:54 Urine pH 8.0 (5.0-7.0) H 06/20/17 18:54 Ur Specific [place] 1.018 (1.003-1.030) 06/20/17 18:54 Urine Protein <15 mg/dl mg/dL (Negative) 06/20/17 18:54 Urine Glucose (UA) Neg mg/dL (Negative) 06/20/17 18:54 Urine Ketones 20 mg/dL (Negative) 06/20/17 18:54 Urine Blood Neg (Negative) 06/20/17 18:54 Urine Nitrite Neg (Negative) 06/20/17 18:54 Urine Bilirubin Neg (Negative) 06/20/17 18:54 Urine Urobilinogen < 2.0 mg/dL (<2.0) 06/20/17 18:54 Ur Leukocyte Esterase Neg (Negative) 06/20/17 18:54 Urine WBC (Auto) 4.0 /HPF (0.0-6.0) 06/20/17 18:54 Urine RBC (Auto) 1.0 /HPF (0.0-6.0) 06/20/17 18:54 U Epithel Cells (Auto) < 1.0 /HPF (0-13.0) 06/20/17 18:54 Urine Bacteria (Auto) 1+ /HPF (Negative) 06/20/17 18:54 Urine Mucus Few /HPF 06/20/17 18:54
[2017-06-23] MEDS: FLEXERIL PO PRN (17:05)
[2017-06-23] MEDS: DIAMOX PO SCH ×2 (17:07→21:17)
[2017-06-23] MEDS: AMBIEN PO PRN (21:17)
[2017-06-23] MEDS: HEPARIN SUB-Q SCH (23:33)
[2017-06-24] MEDS: D5NS 1,000 ML IV SCH ×2 (00:07→17:17)
[2017-06-24] MEDS: DILAUDID IV PRN ×4 (00:13→14:17)
[2017-06-24 05:20] LABS: Hematocrit 47.2 % (35.5-45.6); Hemoglobin 16.5 gm/dl (11.8-15.2); Mean Corpuscular HGB Conc 35 % (32-34); Mean Corpuscular Hemoglobin 32 pg (28-32); Mean Corpuscular Volume 91 fl (84-94); Platelet Count 263 K/mm3 (140-440); Red Blood Count 5.19 M/mm3 (3.65-5.03); Red Cell Distribution Width 12.7 % (13.2-15.2); White Blood Count 11.3 K/mm3 (4.5-11.0)
[2017-06-24 05:41] LABS: Anion Gap 17 mmol/L; BUN/Creatinine Ratio 7; Blood Urea Nitrogen 6 mg/dL (9-20); Calcium 9.4 mg/dL (8.4-10.2); Carbon Dioxide 23 mmol/L (22-30); Chloride 107.3 mmol/L (98-107); Glucose 90 mg/dL (75-100); Potassium 4.1 mmol/L (3.6-5.0); Sodium 143 mmol/L (137-145)
[2017-06-24] MEDS: HEPARIN SUB-Q SCH ×3 (06:01→22:00)
[2017-06-24] MEDS: DIAMOX PO SCH ×3 (08:30→21:10)
[2017-06-24] MEDS: PEPCID PO SCH ×2 (11:12→22:35)
[2017-06-24] MEDS: KEPPRA PO SCH ×2 (11:13→22:35)
--- NOTE | 2017-06-24 13:13 | Progress Note ---
Assessment and Plan - Patient Problems (1) Dehydration Current Visit: Yes Status: Acute Plan to address problem: Resolve has been corrected. (2) Gastritis Current Visit: Yes Status: Acute Qualifiers: Gastritis type: G Chronicity: acute Gastritis bleeding: G Plan to address problem: The resolved. Continue proton pump inhibitor. (3) Headache Current Visit: Yes Status: Acute Qualifiers: Headache type: tension-type Headache chronicity pattern: unspecified pattern Intractability: intractable Qualified Code(s): G44.201 - Tension- type headache, unspecified, intractable Plan to address problem: Patient headaches evaluated by neurology. Pharynx headaches are associated with shunt. Considerations by to give a trial of Diamox. Patient also to have a repeat CT scan her neurology to further evaluate shunt and whether this is actually causing the problem. Increased Dilaudid to 1 (4) Intractable nausea and vomiting Current Visit: Yes Status: Acute Qualifiers: Vomiting type: unspecified Qualified Code(s): R11.2 - Nausea with vomiting , unspecified (5) Seizure disorder Current Visit: Yes Status: Chronic Plan to address problem: No further seizures no seizures at all stable with Her. History Interval history: Patient at present states he feels better blood pain medication is not working. Patient states he still has a headache and Dilaudid is not helping. No further nausea or vomiting unable to keep food down. Family member at bedside. All questions and concerns answered to family satisfaction. Hospitalist Physical - Constitutional Vitals: Temp Pulse Resp BP Pulse Ox 98.3 F 74 19 138/103 99 06/24/17 08:59 06/24/17 08:59 06/24/17 08:59 06/24/17 08:59 06/24/17 08:59 General appearance: Present: mild distress, well-nourished - EENT Eyes: Present: PERRL, EOM intact ENT: hearing intact, clear oral mucosa, dentition normal - Neck Neck: Present: supple, normal ROM - Respiratory Respiratory effort: normal Respiratory: bilateral: CTA - Cardiovascular Rhythm: regular - Extremities Extremities: no ischemia, pulses intact, pulses symmetrical, No edema, normal temperature, Full ROM Peripheral Pulses: within normal limits - Abdominal General gastrointestinal: soft, non-tender, non-distended, no hypoactive bowel sounds, no absent bowel sounds - Psychiatric Psychiatric: appropriate mood/affect, intact judgment & insight, cooperative, agitated - Neurologic Neurologic: CNII-XII intact, no focal deficits, moves all extremities Results - Labs CBC & Chem 7: 06/24/17 04:40 06/24/17 04:40 Labs: Laboratory Last Values WBC 11.3 K/mm3 (4.5-11.0) H 06/24/17 04:40 RBC 5.19 M/mm3 (3.65-5.03) H 06/24/17 04:40 Hgb 16.5 gm/dl (11.8-15.2) H 06/24/17 04:40 Hct 47.2 % (35.5-45.6) H 06/24/17 04:40 MCV 91 fl (84-94) 06/24/17 04:40 MCH 32 pg (28-32) 06/24/17 04:40 MCHC 35 % (32-34) H 06/24/17 04:40 RDW 12.7 % (13.2-15.2) L 06/24/17 04:40 Plt Count 263 K/mm3 (140-440) 06/24/17 04:40 Lymph % (Auto) 17.7 % (13.4-35.0) 06/21/17 04:31 [place] % (Auto) 6.6 % (0.0-7.3) 06/21/17 04:31 Eos % (Auto) 1.7 % (0.0-4.3) 06/21/17 04:31 Baso % (Auto) 0.5 % (0.0-1.8) 06/21/17 04:31 Lymph # 2.7 K/mm3 (1.2-5.4) 06/21/17 04:31 [place] # 1.0 K/mm3 (0.0-0.8) H 06/21/17 04:31 Eos # 0.3 K/mm3 (0.0-0.4) 06/21/17 04:31 Baso # 0.1 K/mm3 (0.0-0.1) 06/21/17 04:31 Add Manual Diff Complete 06/21/17 04:31 Total Counted 100 06/20/17 13:54 Seg Neutrophils % 73.5 % (40.0-70.0) H 06/21/17 04:31 Seg Neuts % (Manual) 58.0 % (40.0-70.0) 06/20/17 13:54 Band Neutrophils % 0 % 06/20/17 13:54 Lymphocytes % (Manual) 30.0 % (13.4-35.0) 06/20/17 13:54 Reactive Lymphs % (Man) 3.0 % 06/20/17 13:54 Monocytes % (Manual) 7.0 % (0.0-7.3) 06/20/17 13:54 Eosinophils % (Manual) 2.0 % (0.0-4.3) 06/20/17 13:54 Basophils % (Manual) 0 % (0.0-1.8) 06/20/17 13:54 Metamyelocytes % 0 % 06/20/17 13:54 Myelocytes % 0 % 06/20/17 13:54 Promyelocytes % 0 % 06/20/17 13:54 Blast Cells % 0 % 06/20/17 13:54 Nucleated RBC % Not Reportable 06/20/17 13:54 Seg Neutrophils # 11.0 K/mm3 (1.8-7.7) H 06/21/17 04:31 Seg Neutrophils # Man 11.4 K/mm3 (1.8-7.7) H 06/20/17 13:54 Band Neutrophils # 0.0 K/mm3 06/20/17 13:54 Lymphocytes # (Manual) 5.9 K/mm3 (1.2-5.4) H 06/20/17 13:54 Abs React Lymphs (Man) 0.6 K/mm3 06/20/17 13:54 Monocytes # (Manual) 1.4 K/mm3 (0.0-0.8) H 06/20/17 13:54 Eosinophils # (Manual) 0.4 K/mm3 (0.0-0.4) 06/20/17 13:54 Basophils # (Manual) 0.0 K/mm3 (0.0-0.1) 06/20/17 13:54 Metamyelocytes # 0.0 K/mm3 06/20/17 13:54 Myelocytes # 0.0 K/mm3 06/20/17 13:54 Promyelocytes # 0.0 K/mm3 06/20/17 13:54 Blast Cells # 0.0 K/mm3 06/20/17 13:54 WBC Morphology Not Reportable 06/20/17 13:54 Hypersegmented Neuts Not Reportable 06/20/17 13:54 Hyposegmented Neuts Not Reportable 06/20/17 13:54 Hypogranular Neuts Not Reportable 06/20/17 13:54 Smudge Cells Not Reportable 06/20/17 13:54 Toxic Granulation Not Reportable 06/20/17 13:54 Toxic Vacuolation Not Reportable 06/20/17 13:54 Dohle Bodies Not Reportable 06/20/17 13:54 Pelger-Huet Anomaly Not Reportable 06/20/17 13:54 Bijal Rods Not Reportable 06/20/17 13:54 Platelet Estimate Not Reportable 06/20/17 13:54 Clumped Platelets Not Reportable 06/20/17 13:54 Plt Clumps, EDTA Not Reportable 06/20/17 13:54 Large Platelets Not Reportable 06/20/17 13:54 Giant Platelets Not Reportable 06/20/17 13:54 Platelet Satelliting Not Reportable 06/20/17 13:54 Plt Morphology Comment Not Reportable 06/20/17 13:54 RBC Morphology Normal 06/20/17 13:54 Dimorphic RBCs Not Reportable 06/20/17 13:54 Polychromasia Not Reportable 06/20/17 13:54 Hypochromasia Not Reportable 06/20/17 13:54 Poikilocytosis Not Reportable 06/20/17 13:54 Anisocytosis Not Reportable 06/20/17 13:54 Microcytosis Not Reportable 06/20/17 13:54 Macrocytosis Not Reportable 06/20/17 13:54 Spherocytes Not Reportable 06/20/17 13:54 Pappenheimer Bodies Not Reportable 06/20/17 13:54 Sickle Cells Not Reportable 06/20/17 13:54 Target Cells Not Reportable 06/20/17 13:54 Tear Drop Cells Not Reportable 06/20/17 13:54 Ovalocytes Not Reportable 06/20/17 13:54 Helmet Cells Not Reportable 06/20/17 13:54 [place] Bodies Not Reportable 06/20/17 13:54 [place] Rings Not Reportable 06/20/17 13:54 [place] Cells Not Reportable 06/20/17 13:54 Bite Cells Not Reportable 06/20/17 13:54 Crenated Cell Not Reportable 06/20/17 13:54 Elliptocytes Not Reportable 06/20/17 13:54 Acanthocytes (Spur) Not Reportable 06/20/17 13:54 Rouleaux Not Reportable 06/20/17 13:54 Hemoglobin C Crystals Not Reportable 06/20/17 13:54 Schistocytes Not Reportable 06/20/17 13:54 Malaria parasites Not Reportable 06/20/17 13:54 [place] Bodies Not Reportable 06/20/17 13:54 Hem Pathologist Commnt No 06/20/17 13:54 Sodium 143 mmol/L (137-145) 06/24/17 04:40 Potassium 4.1 mmol/L (3.6-5.0) 06/24/17 04:40 Chloride 107.3 mmol/L (98-107) H 06/24/17 04:40 Carbon Dioxide 23 mmol/L (22-30) 06/24/17 04:40 Anion Gap 17 mmol/L 06/24/17 04:40 BUN 6 mg/dL (9-20) L 06/24/17 04:40 Creatinine 0.9 mg/dL (0.8-1.5) 06/24/17 04:40 Estimated GFR > 60 ml/min 06/24/17 04:40 BUN/Creatinine Ratio 7 % 06/24/17 04:40 Glucose 90 mg/dL (75-100) 06/24/17 04:40 POC Glucose 132 (70-105) H 06/21/17 06:18 Calcium 9.4 mg/dL (8.4-10.2) 06/24/17 04:40 Total Bilirubin 0.50 mg/dL (0.1-1.2) 06/21/17 04:31 AST 28 units/L (5-40) 06/21/17 04:31 ALT 31 units/L (7-56) 06/21/17 04:31 Alkaline Phosphatase 52 units/L (35-129) 06/21/17 04:31 Total Protein 6.5 g/dL (6.3-8.2) 06/21/17 04:31 Albumin 3.6 g/dL (3.9-5) L 06/21/17 04:31 Albumin/Globulin Ratio 1.2 % 06/21/17 04:31 Urine Color Yellow (Yellow) 06/20/17 18:54 Urine Turbidity Clear (Clear) 06/20/17 18:54 Urine pH 8.0 (5.0-7.0) H 06/20/17 18:54 Ur Specific [place] 1.018 (1.003-1.030) 06/20/17 18:54 Urine Protein <15 mg/dl mg/dL (Negative) 06/20/17 18:54 Urine Glucose (UA) Neg mg/dL (Negative) 06/20/17 18:54 Urine Ketones 20 mg/dL (Negative) 06/20/17 18:54 Urine Blood Neg (Negative) 06/20/17 18:54 Urine Nitrite Neg (Negative) 06/20/17 18:54 Urine Bilirubin Neg (Negative) 06/20/17 18:54 Urine Urobilinogen < 2.0 mg/dL (<2.0) 06/20/17 18:54 Ur Leukocyte Esterase Neg (Negative) 06/20/17 18:54 Urine WBC (Auto) 4.0 /HPF (0.0-6.0) 06/20/17 18:54 Urine RBC (Auto) 1.0 /HPF (0.0-6.0) 06/20/17 18:54 U Epithel Cells (Auto) < 1.0 /HPF (0-13.0) 06/20/17 18:54 Urine Bacteria (Auto) 1+ /HPF (Negative) 06/20/17 18:54 Urine Mucus Few /HPF 06/20/17 18:54
[2017-06-24] MEDS: PERCOCET 5/325 PO PRN ×2 (17:26→20:00)
[2017-06-24] MEDS: DILAUDID IM PRN (21:40)
[2017-06-25] MEDS: PERCOCET 5/325 PO PRN ×2 (00:30→15:51)
[2017-06-25] MEDS: D5NS 1,000 ML IV SCH ×3 (01:20→20:11)
[2017-06-25] MEDS: DILAUDID IM PRN (02:15)
[2017-06-25] MEDS: HEPARIN SUB-Q SCH ×3 (06:14→21:11)
[2017-06-25] MEDS: DILAUDID IV PRN ×3 (09:53→21:10)
--- NOTE | 2017-06-25 10:30 | Cat Scan Report ---
CT HEAD WITHOUT CONTRAST INDICATION: Headache. COMPARISON: 06/20/2017. FINDINGS: Noncontrast head CT demonstrates stable ventricles and sulci without acute or recent infarct, hemorrhage, mass effect or midline shift. Relatively small/decompressed third and fourth ventricles maintain midline. No abnormal extra-axial fluid collections. A right transfrontal shunt catheter again noted with its tip terminating about the genu of the corpus callosum, axial image 31, series 2. Posterior fossa evaluation limited due to artifact, though appears grossly stable, including suboccipital craniotomy changes. Leftward nasal septal deviation. Clear imaged paranasal sinuses and left mastoid air cells. Right mastoid tip opacification again noted. Normal scalp. Numerous radiopaque dental material. 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 Right transfrontal shunt catheter again noted, though its tip felt terminating at the corpus callosum and not confirmed intraventricular. Please correlate. Thank you for the opportunity to participate in this patient's care.
[2017-06-25] MEDS: KEPPRA PO SCH ×2 (12:33→21:09)
[2017-06-25] MEDS: PEPCID PO SCH ×2 (12:34→21:10)
--- NOTE | 2017-06-25 14:02 | Discharge Summary ---
Providers - Providers Date of Admission: 06/20/17 20:08 Date of discharge: 06/26/17 Attending physician: MAN SAUCEDO MD 06/21/17 11:57 Consult to Physician [CONS] Routine Consulting Provider: FERNANDO MARK Reason For Exam: Headache,vomiting Place consult to:: DR. MARK Notified:: OFFICE Phone number called:: [phone] Was contact made?: Yes If yes, spoke with:: ARACELY Time called:: 12:09 Comment:: GUILLERMINA NOTIFIED Primary care physician: [facility]NER AND FORMER Hospitalization Reason for admission: Intractable Head ache Condition: Stable Pertinent studies: CT head showed no acute changes Hospital course: HPI This is a 26-year-old male who presents to the emergency department with complaint of nausea, vomiting and a posterior headache. Vomiting multiple times.Says he lost count The patient was here last week and had seizure activity that led to him being intubated. He was discharged last Sunday, 4 days ago, and says he has been having nausea and vomiting since that time. 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 He was discharged home on seizure medication which he says he has been taking compliantly, as much as possible with the vomiting. Today he had an episode of vomiting where he feels like his head "snapped back" and started causing this headache. He otherwise has not taken anything for his symptoms prior to presentation. He denies any fever, vision change, slurred speech or any neurological deficits. Patient was admitted to the floor and was treated with iv fluids, pain medications and diamox. This morning the patient showed marked improvement. Repeat Ct showed no acute changes. Neurology consult appreciated. He saw the patient and the repeat CT this morning and recommend to discharge the patient with diamox. Patient was hemodynamically stable at the time of discharge. he was given a script for his medications and i have communicated with his nurse to discharge the patient. Disposition: - TO HOME OR SELFCARE Time spent for discharge: 31 minutes - Discharge Diagnoses (1) Gastritis Status: Acute Qualifiers: Gastritis type: G Chronicity: acute Gastritis bleeding: G (2) Headache Status: Acute Qualifiers: Headache type: tension-type Headache chronicity pattern: unspecified pattern Intractability: intractable Qualified Code(s): G44.201 - Tension- type headache, unspecified, intractable (3) Intractable nausea and vomiting Status: Acute Qualifiers: Vomiting type: unspecified Qualified Code(s): R11.2 - Nausea with vomiting , unspecified (4) Seizure disorder Status: Chronic Core Measure Documentation - Palliative Care Palliative Care/ Comfort Measures: Not Applicable - Core Measures Any of the following diagnoses?: none Exam - Physical Exam Narrative exam: Not in cardiopulmonary distress. The patient appeared well nourished and normally developed. Vital signs as documented. Head exam is unremarkable. No scleral icterus . Neck is without jugular venous distension, thyromegaly, or carotid bruits. Lungs are clear to auscultation. Cardiac exam reveals regular rate and Rhythm. First and second heart sounds normal. No murmurs, rubs or gallops. Abdominal exam reveals normal bowel sounds, no masses, no organomegaly and no aortic enlargement. Extremities are nonedematous and both femoral and pedal pulses are normal. 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 No focal weakness. - Constitutional Vitals: Temp Pulse Resp BP Pulse Ox 97.5 F L 70 16 124/83 99 06/25/17 08:25 06/25/17 08:25 06/25/17 08:25 06/25/17 08:25 06/25/17 08:25 Plan Activity: no restrictions Weight Bearing Status: Full Weight Bearing Diet: low salt Follow up with: PRIMARY CARE, [Primary Care Provider] - 3-5 Days Prescriptions: acetaZOLAMIDE [Diamox TAB] 250 mg PO DAILY #30 tablet levETIRAcetam [Keppra TAB] 500 mg PO BID #60 tablet oxyCODONE /ACETAMINOPHEN [Percocet 5/325 mg] 1 tab PO Q4H PRN #14 tablet PRN Reason: Pain, Moderate (4-6) Pantoprazole [Protonix TAB] 40 mg PO QDAY #30 tablet
[2017-06-25] MEDS: DIAMOX PO SCH ×2 (15:40→21:09)
[2017-06-26] MEDS: DILAUDID IV PRN ×2 (00:38→04:12)
[2017-06-26] MEDS: D5NS 1,000 ML IV SCH (03:50)
--- NOTE | 2017-06-26 06:13 | Progress Note ---
Assessment and Plan Assessment and plan: Headache - CT head done on admission was negative and repeated yesterday with no change - Neurology consulted and recommended to discharge the patient - Discharge orders are in place Nausea and vomiting - Symptomatic management with Zofran Gastritis likely - Continue his Pepcid Leukocytosis - Trending down, no source of infection Seizure disorder - Continue Keppra Dehydration - Resolved with IV fluids Full code status Discussed with patient and family member at bedside. - Patient Problems (1) Gastritis Current Visit: Yes Status: Acute Qualifiers: Gastritis type: G Chronicity: acute Gastritis bleeding: G (2) Headache Current Visit: Yes Status: Acute Qualifiers: Headache type: tension-type Headache chronicity pattern: unspecified pattern Intractability: intractable Qualified Code(s): G44.201 - Tension- type headache, unspecified, intractable (3) Intractable nausea and vomiting Current Visit: Yes Status: Acute Qualifiers: Vomiting type: unspecified Qualified Code(s): R11.2 - Nausea with vomiting , unspecified (4) Seizure disorder Current Visit: Yes Status: Chronic History Interval history: Patient was seen and evaluated this morning, the patient still complains pain but getting better. Hospitalist Physical - Physical exam Narrative exam: Not in cardiopulmonary distress. The patient appeared well nourished and normally developed. Vital signs as documented. Head exam is unremarkable. No scleral icterus . Neck is without jugular venous distension, thyromegaly, or carotid bruits. Lungs are clear to auscultation. Cardiac exam reveals regular rate and Rhythm. First and second heart sounds normal. No murmurs, rubs or gallops. Abdominal exam reveals normal bowel sounds, no masses, no organomegaly and no aortic enlargement. Extremities are nonedematous and both femoral and pedal pulses are normal. 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 - Constitutional Vitals: Temp Pulse Resp BP Pulse Ox 98.3 F 96 H 18 123/82 97 06/25/17 23:42 06/25/17 23:42 06/25/17 23:42 06/25/17 23:42 06/25/17 23:42 General appearance: Present: mild distress, well-nourished Results - Labs CBC & Chem 7: 06/24/17 04:40 06/24/17 04:40 Labs: Laboratory Last Values WBC 11.3 K/mm3 (4.5-11.0) H 06/24/17 04:40 RBC 5.19 M/mm3 (3.65-5.03) H 06/24/17 04:40 Hgb 16.5 gm/dl (11.8-15.2) H 06/24/17 04:40 Hct 47.2 % (35.5-45.6) H 06/24/17 04:40 MCV 91 fl (84-94) 06/24/17 04:40 MCH 32 pg (28-32) 06/24/17 04:40 MCHC 35 % (32-34) H 06/24/17 04:40 RDW 12.7 % (13.2-15.2) L 06/24/17 04:40 Plt Count 263 K/mm3 (140-440) 06/24/17 04:40 Lymph % (Auto) 17.7 % (13.4-35.0) 06/21/17 04:31 [place] % (Auto) 6.6 % (0.0-7.3) 06/21/17 04:31 Eos % (Auto) 1.7 % (0.0-4.3) 06/21/17 04:31 Baso % (Auto) 0.5 % (0.0-1.8) 06/21/17 04:31 Lymph # 2.7 K/mm3 (1.2-5.4) 06/21/17 04:31 [place] # 1.0 K/mm3 (0.0-0.8) H 06/21/17 04:31 Eos # 0.3 K/mm3 (0.0-0.4) 06/21/17 04:31 Baso # 0.1 K/mm3 (0.0-0.1) 06/21/17 04:31 Add Manual Diff Complete 06/21/17 04:31 Total Counted 100 06/20/17 13:54 Seg Neutrophils % 73.5 % (40.0-70.0) H 06/21/17 04:31 Seg Neuts % (Manual) 58.0 % (40.0-70.0) 06/20/17 13:54 Band Neutrophils % 0 % 06/20/17 13:54 Lymphocytes % (Manual) 30.0 % (13.4-35.0) 06/20/17 13:54 Reactive Lymphs % (Man) 3.0 % 06/20/17 13:54 Monocytes % (Manual) 7.0 % (0.0-7.3) 06/20/17 13:54 Eosinophils % (Manual) 2.0 % (0.0-4.3) 06/20/17 13:54 Basophils % (Manual) 0 % (0.0-1.8) 06/20/17 13:54 Metamyelocytes % 0 % 06/20/17 13:54 Myelocytes % 0 % 06/20/17 13:54 Promyelocytes % 0 % 06/20/17 13:54 Blast Cells % 0 % 06/20/17 13:54 Nucleated RBC % Not Reportable 06/20/17 13:54 Seg Neutrophils # 11.0 K/mm3 (1.8-7.7) H 06/21/17 04:31 Seg Neutrophils # Man 11.4 K/mm3 (1.8-7.7) H 06/20/17 13:54 Band Neutrophils # 0.0 K/mm3 06/20/17 13:54 Lymphocytes # (Manual) 5.9 K/mm3 (1.2-5.4) H 06/20/17 13:54 Abs React Lymphs (Man) 0.6 K/mm3 06/20/17 13:54 Monocytes # (Manual) 1.4 K/mm3 (0.0-0.8) H 06/20/17 13:54 Eosinophils # (Manual) 0.4 K/mm3 (0.0-0.4) 06/20/17 13:54 Basophils # (Manual) 0.0 K/mm3 (0.0-0.1) 06/20/17 13:54 Metamyelocytes # 0.0 K/mm3 06/20/17 13:54 Myelocytes # 0.0 K/mm3 06/20/17 13:54 Promyelocytes # 0.0 K/mm3 06/20/17 13:54 Blast Cells # 0.0 K/mm3 06/20/17 13:54 WBC Morphology Not Reportable 06/20/17 13:54 Hypersegmented Neuts Not Reportable 06/20/17 13:54 Hyposegmented Neuts Not Reportable 06/20/17 13:54 Hypogranular Neuts Not Reportable 06/20/17 13:54 Smudge Cells Not Reportable 06/20/17 13:54 Toxic Granulation Not Reportable 06/20/17 13:54 Toxic Vacuolation Not Reportable 06/20/17 13:54 Dohle Bodies Not Reportable 06/20/17 13:54 Pelger-Huet Anomaly Not Reportable 06/20/17 13:54 Bijal Rods Not Reportable 06/20/17 13:54 Platelet Estimate Not Reportable 06/20/17 13:54 Clumped Platelets Not Reportable 06/20/17 13:54 Plt Clumps, EDTA Not Reportable 06/20/17 13:54 Large Platelets Not Reportable 06/20/17 13:54 Giant Platelets Not Reportable 06/20/17 13:54 Platelet Satelliting Not Reportable 06/20/17 13:54 Plt Morphology Comment Not Reportable 06/20/17 13:54 RBC Morphology Normal 06/20/17 13:54 Dimorphic RBCs Not Reportable 06/20/17 13:54 Polychromasia Not Reportable 06/20/17 13:54 Hypochromasia Not Reportable 06/20/17 13:54 Poikilocytosis Not Reportable 06/20/17 13:54 Anisocytosis Not Reportable 06/20/17 13:54 Microcytosis Not Reportable 06/20/17 13:54 Macrocytosis Not Reportable 06/20/17 13:54 Spherocytes Not Reportable 06/20/17 13:54 Pappenheimer Bodies Not Reportable 06/20/17 13:54 Sickle Cells Not Reportable 06/20/17 13:54 Target Cells Not Reportable 06/20/17 13:54 Tear Drop Cells Not Reportable 06/20/17 13:54 Ovalocytes Not Reportable 06/20/17 13:54 Helmet Cells Not Reportable 06/20/17 13:54 [place] Bodies Not Reportable 06/20/17 13:54 [place] Rings Not Reportable 06/20/17 13:54 [place] Cells Not Reportable 06/20/17 13:54 Bite Cells Not Reportable 06/20/17 13:54 Crenated Cell Not Reportable 06/20/17 13:54 Elliptocytes Not Reportable 06/20/17 13:54 Acanthocytes (Spur) Not Reportable 06/20/17 13:54 Rouleaux Not Reportable 06/20/17 13:54 Hemoglobin C Crystals Not Reportable 06/20/17 13:54 Schistocytes Not Reportable 06/20/17 13:54 Malaria parasites Not Reportable 06/20/17 13:54 [place]ogo Bodies Not Reportable 06/20/17 13:54 Hem Pathologist Commnt No 06/20/17 13:54 Sodium 143 mmol/L (137-145) 06/24/17 04:40 Potassium 4.1 mmol/L (3.6-5.0) 06/24/17 04:40 Chloride 107.3 mmol/L (98-107) H 06/24/17 04:40 Carbon Dioxide 23 mmol/L (22-30) 06/24/17 04:40 Anion Gap 17 mmol/L 06/24/17 04:40 BUN 6 mg/dL (9-20) L 06/24/17 04:40 Creatinine 0.9 mg/dL (0.8-1.5) 06/24/17 04:40 Estimated GFR > 60 ml/min 06/24/17 04:40 BUN/Creatinine Ratio 7 % 06/24/17 04:40 Glucose 90 mg/dL (75-100) 06/24/17 04:40 POC Glucose 86 (70-105) 06/25/17 21:25 Calcium 9.4 mg/dL (8.4-10.2) 06/24/17 04:40 Total Bilirubin 0.50 mg/dL (0.1-1.2) 06/21/17 04:31 AST 28 units/L (5-40) 06/21/17 04:31 ALT 31 units/L (7-56) 06/21/17 04:31 Alkaline Phosphatase 52 units/L (35-129) 06/21/17 04:31 Total Protein 6.5 g/dL (6.3-8.2) 06/21/17 04:31 Albumin 3.6 g/dL (3.9-5) L 06/21/17 04:31 Albumin/Globulin Ratio 1.2 % 06/21/17 04:31 Urine Color Yellow (Yellow) 06/20/17 18:54 Urine Turbidity Clear (Clear) 06/20/17 18:54 Urine pH 8.0 (5.0-7.0) H 06/20/17 18:54 Ur Specific [place] 1.018 (1.003-1.030) 06/20/17 18:54 Urine Protein <15 mg/dl mg/dL (Negative) 06/20/17 18:54 Urine Glucose (UA) Neg mg/dL (Negative) 06/20/17 18:54 Urine Ketones 20 mg/dL (Negative) 06/20/17 18:54 Urine Blood Neg (Negative) 06/20/17 18:54 Urine Nitrite Neg (Negative) 06/20/17 18:54 Urine Bilirubin Neg (Negative) 06/20/17 18:54 Urine Urobilinogen < 2.0 mg/dL (<2.0) 06/20/17 18:54 Ur Leukocyte Esterase Neg (Negative) 06/20/17 18:54 Urine WBC (Auto) 4.0 /HPF (0.0-6.0) 06/20/17 18:54 Urine RBC (Auto) 1.0 /HPF (0.0-6.0) 06/20/17 18:54 U Epithel Cells (Auto) < 1.0 /HPF (0-13.0) 06/20/17 18:54 Urine Bacteria (Auto) 1+ /HPF (Negative) 06/20/17 18:54 Urine Mucus Few /HPF 06/20/17 18:54
[2017-06-26] MEDS: HEPARIN SUB-Q SCH (06:34)
[2017-06-26] MEDS: DIAMOX PO SCH ×2 (08:13→08:14)
[2017-06-26 11:45] VITALS: BP 126/86
== END 2017-06-26 10:50 | disposition home or self-care (01) | DRG 392 ==
LOC: ED 13:36 → 3A 20:08
PROVIDERS: ADMIT Internal Medicine; ATTEND Internal Medicine
DX: K29.70 Gastritis, unspecified, without bleeding (principal); E86.0 Dehydration; F17.200 Nicotine dependence, unspecified, uncomplicated; R51 Headache; G40.909 Epilepsy, unspecified, not intractable, without status epilepticus; D72.829 Elevated white blood cell count, unspecified; Z88.5 Allergy status to narcotic agent
CPT/HCPCS: 36415; 70450; 80048; 80053; 81001; 82962; 85007; 85025; 85027; 99406; J1170; J1644; J2270; J2405; J2765; J7030; J7042

== ENCOUNTER 2017-06-28 15:44 | Emergency (ER) | payer SELFPAY ==
[2017-06-28 17:19] LABS: Hematocrit 53.7 % (35.5-45.6); Hemoglobin 18.7 gm/dl (11.8-15.2); Mean Corpuscular HGB Conc 35 % (32-34); Mean Corpuscular Hemoglobin 32 pg (28-32); Mean Corpuscular Volume 92 fl (84-94); Platelet Count 297 K/mm3 (140-440); Red Blood Count 5.81 M/mm3 (3.65-5.03); Red Cell Distribution Width 13.4 % (13.2-15.2)
[2017-06-28 17:22] LABS: White Blood Count 22.4 K/mm3 (4.5-11.0)
[2017-06-28 17:28] LABS: Anion Gap 24 mmol/L; BUN/Creatinine Ratio 12; Blood Urea Nitrogen 14 mg/dL (9-20); Calcium 10.1 mg/dL (8.4-10.2); Carbon Dioxide 21 mmol/L (22-30); Chloride 97.2 mmol/L (98-107); Glucose 145 mg/dL (75-100); Potassium 3.8 mmol/L (3.6-5.0); Sodium 138 mmol/L (137-145)
[2017-06-28 17:53] LABS: Bilirubin,Urine NEG (Negative); Blood,Urine NEG (Negative); Ketones,Urine TR mg/dL (Negative); Leukocyte Esterase,Urine NEG (Negative); Mucus,Urine 2+ /HPF; Nitrite,Urine NEG (Negative); Protein,Urine <15 mg/dL mg/dL (Negative); Urobilinogen,Urine < 2.0 mg/dL (<2.0)
[2017-06-28 18:55] LABS: Basophils % (Manual) 0 % (0.0-1.8); Blastocytes % (Manual) 0 %; Eosinophils % (Manual) 0 % (0.0-4.3)
[2017-06-28 19:06] LABS: Anisocytosis 1+; Diff Status Complete; Platelet Estimate Consistent w Auto
[2017-06-29 01:48] VITALS: BP 138/81
[2017-06-29] MEDS ORDERED: BENADRYL IV ONE (03:04)
[2017-06-29] MEDS ORDERED: XYLOCAINE TOPICAL 4% TP ONE (03:04)
[2017-06-29] MEDS ORDERED: MAGNESIUM SULFATE 2GM/50ML 2 GM/50 ML BAG IV ONE (03:04)
[2017-06-29] MEDS ORDERED: REGLAN IV ONE (03:04)
--- NOTE | 2017-06-29 03:06 | Cat Scan Report ---
FINAL REPORT EXAM: CT HEAD/BRAIN WO CON HISTORY: baugh, n/v TECHNIQUE: Routine axial imaging was obtained the brain without IV contrast. Comparison is made to the previous study of 06/25/2017. FINDINGS: There is stable mild enlargement of the lateral ventricles. The 4th ventricle is decompressed. There is no evidence of acute stroke or hemorrhage. There is a right transfrontal shunt catheter with the tip positioned proximal to the ventricular system. This is unchanged from the previous study. The posterior fossa structures reveal a suboccipital craniotomy. The visualized sinuses are clear. IMPRESSION: Stable ventriculomegaly of the lateral ventricles. No evidence of acute stroke or hemorrhage. Overall appearance of the brain is unchanged from the previous study
--- NOTE | 2017-06-29 03:07 | Emergency Department Report ---
ED General Adult HPI - General Chief complaint: Nausea/Vomiting/Diarrhea Stated complaint: VOMITING, HEAD PAIN Time Seen by Provider: 06/29/17 03:03 Source: patient, family, RN notes reviewed, old records reviewed Mode of arrival: Ambulatory Limitations: No Limitations - History of Present Illness Initial comments: This is a 26-year-old male, previously unknown to this this provider, has a past medical history of infantile place a ventriculoperitoneal shunt, seizure disorder, presents to the ER complaining of headache. The headache is occipital and right-sided, it has been present for over a month. The headache is associated with "snapping" of his neck. Patient recently evaluated in this hospital for similar symptoms. Had extensive workup, including MRI, CSF, all of which were unremarkable. Patient had x-rays at this hospital in 2012, which demonstrated a ventriculoperitoneal shunt catheter, terminating in the left upper quadrant, with a second tube in the mid pelvis which is not connected. Patient is aware of this, and indicates that he knows about it. Patient presents to the ER complaining of headache and neck discomfort, sore throat, and upper thoracic back pain, and nausea. The headache has been present for about a month. Sore throat started today, and is not associated with cough. There is no fever. No chills. The patient's symptoms have no exacerbating or relieving factors. There is no weakness, there is no numbness focally, there is no ataxia. The headache is not sudden or thunderclap in nature, it did not reach maximal intensity within an hour, patient had a negative LP. -: Gradual Location: head, neck, back Severity scale (0 -10): 9 Quality: aching Consistency: constant Improves with: medication, rest Worsens with: movement Associated Symptoms: headaches - Related Data Home Medications Medication Instructions Recorded Confirmed Last Taken oxyCODONE /ACETAMINOPHEN [Percocet 1 tab PO Q4HR 06/29/17 06/29/17 06/28/17 5/325] Previous Rx's Medication Instructions Recorded Last Taken Type Pantoprazole [Protonix TAB] 40 mg PO QDAY #30 tablet 06/25/17 06/28/17 Rx acetaZOLAMIDE [Diamox TAB] 250 mg PO DAILY #30 tablet 06/25/17 06/28/17 Rx levETIRAcetam [Keppra TAB] 500 mg PO BID #60 tablet 06/25/17 06/28/17 Rx Butalb/Acetamin/Caff 50-325-40 1 each PO Q4H PRN #20 tablet 06/29/17 Unknown Rx [Fioricet] Metoclopramide [Reglan] 10 mg PO QID PRN #30 tablet 06/29/17 Unknown Rx Allergies Allergy/AdvReac Type Severity Reaction Status Date / Time codeine Allergy Hives Verified 06/28/17 16:37 ED Review of Systems ROS: Stated complaint: VOMITING, HEAD PAIN Other details as noted in HPI Constitutional: malaise Eyes: denies: vision change ENT: denies: epistaxis Respiratory: denies: cough Cardiovascular: denies: chest pain Gastrointestinal: nausea Genitourinary: denies: dysuria Musculoskeletal: back pain Skin: denies: lesions Neurological: headache. denies: weakness Psychiatric: anxiety ED Past Medical Hx - Past Medical History Previous Medical History?: Yes Hx Hypertension: Yes Hx Seizures: Yes - Surgical History Past Surgical History?: Yes Additional Surgical History: shunt to R. side head - Social History Smoking Status: Former Smoker Substance Use Type: Alcohol - Medications Home Medications: Home Medications Medication Instructions Recorded Confirmed Last Taken Type Pantoprazole [Protonix TAB] 40 mg PO QDAY #30 tablet 06/25/17 06/29/17 06/28/17 Rx acetaZOLAMIDE [Diamox TAB] 250 mg PO DAILY #30 tablet 06/25/17 06/29/17 Rx levETIRAcetam [Keppra TAB] 500 mg PO BID #60 tablet 06/25/17 06/29/17 06/28/17 Rx Butalb/Acetamin/Caff 50-325-40 1 each PO Q4H PRN #20 tablet 06/29/17 Unknown Rx [Fioricet] Metoclopramide [Reglan] 10 mg PO QID PRN #30 tablet 06/29/17 Unknown Rx oxyCODONE /ACETAMINOPHEN [Percocet 1 tab PO Q4HR 06/29/17 06/29/17 06/28/17 History 5/325] ED Physical Exam - General Limitations: No Limitations General appearance: alert, in no apparent distress - Head Head exam: Present: atraumatic, normocephalic - Eye Eye exam: Present: normal appearance, PERRL, EOMI, other (visual acuity intact to finger counting, color perception, reading at a close distance). Absent: nystagmus - ENT ENT exam: Present: normal exam, normal orophraynx (no pharyngeal exudates noted. No uvular deviation is noted. No stridor or dysphonia), mucous membranes moist, TM's normal bilaterally, normal external ear exam, other ( there is no mastoid tenderness) - Neck Neck exam: Present: normal inspection, full ROM. Absent: tenderness, meningismus - Respiratory Respiratory exam: Present: normal lung sounds bilaterally. Absent: respiratory distress, wheezes, rales, rhonchi, stridor - Cardiovascular Cardiovascular Exam: Present: regular rate, normal rhythm, normal heart sounds. Absent: bradycardia, tachycardia, irregular rhythm, systolic murmur, diastolic murmur, rubs, gallop - GI/Abdominal GI/Abdominal exam: Present: soft, normal bowel sounds. Absent: distended, tenderness, guarding, rebound, rigid, pulsatile mass - Rectal Rectal exam: Present: deferred - Extremities Exam Extremities exam: Present: normal inspection, full ROM, normal capillary refill. Absent: pedal edema, joint swelling, calf tenderness - Back Exam Back exam: Present: normal inspection, full ROM. Absent: tenderness, CVA tenderness (R), CVA tenderness (L), muscle spasm, paraspinal tenderness, vertebral tenderness - Neurological Exam Neurological exam: Present: alert, oriented X3, normal gait, other (Extraocular movements intact. Tongue midline. No facial droop. Facial sensation intact to light touch in the V1, V2, V3 distribution bilaterally. 5 and 5 strength in 4 extremities.. Sensation is intact to light touch in 4 extremities.). Absent : motor sensory deficit - Psychiatric Psychiatric exam: Present: normal affect, normal mood - Skin Skin exam: Present: warm, dry, intact, normal color. Absent: rash ED Course Vital Signs 06/28/17 06/29/17 06/29/17 16:38 00:48 01:35 Temperature 99.4 F 98.8 F 98.9 F Pulse Rate 110 H 100 H Respiratory 16 18 Rate Blood Pressure 131/93 123/83 Blood Pressure [Left] O2 Sat by Pulse 98 98 Oximetry 06/29/17 06/29/17 01:39 01:47 Temperature Pulse Rate 89 Respiratory 16 16 Rate Blood Pressure Blood Pressure 138/81 [Left] O2 Sat by Pulse 100 100 Oximetry - Reevaluation(s) Reevaluation #1: 06/29/17 04:56 The strep screen is negative. No active vomiting. Patient may have a component of post dural headaches last post-lumbar puncture headache. fiorecet ordered Patient observed in the ER for a prolonged period of time, his leukocytosis is appreciated, however he is afebrile, without altered mental status, and his current history and physical do not suggest bacterial infection at this time. Patient will be discharged with pain medication, nausea medication, instructions to follow up with outpatient neurology. Reevaluation #2: 06/29/17 05:05 Patient also instructed to not drive or operate motor vehicles for the next 6 months given recent seizure activity a few weeks ago. ED Medical Decision Making - Lab Data Result diagrams: 06/29/17 04:01 06/28/17 17:00 Vital Signs 06/28/17 06/29/17 06/29/17 16:38 00:48 01:35 Temperature 99.4 F 98.8 F 98.9 F Pulse Rate 110 H 100 H Respiratory 16 18 Rate Blood Pressure 131/93 123/83 Blood Pressure [Left] O2 Sat by Pulse 98 98 Oximetry 06/29/17 06/29/17 01:39 01:47 Temperature Pulse Rate 89 Respiratory 16 16 Rate Blood Pressure Blood Pressure 138/81 [Left] O2 Sat by Pulse 100 100 Oximetry Lab Results 06/28/17 06/28/17 06/28/17 Range/Units 17:00 17:00 17:15 WBC 22.4 H (4.5-11.0) K/mm3 RBC 5.81 H (3.65-5.03) M/mm3 Hgb 18.7 H (11.8-15.2) gm/dl Hct 53.7 H (35.5-45.6) % MCV 92 (84-94) fl MCH 32 (28-32) pg MCHC 35 H (32-34) % RDW 13.4 (13.2-15.2) % Plt Count 297 (140-440) K/mm3 Add Manual Diff Complete Total Counted 100 Seg Neuts % (Manual) 87.0 H (40.0-70.0) % Band Neutrophils % 3.0 % Lymphocytes % (Manual) 9.0 L (13.4-35.0) % Reactive Lymphs % (Man) 0 % Monocytes % (Manual) 1.0 (0.0-7.3) % Eosinophils % (Manual) 0 (0.0-4.3) % Basophils % (Manual) 0 (0.0-1.8) % Metamyelocytes % 0 % Myelocytes % 0 % Promyelocytes % 0 % Blast Cells % 0 % Nucleated RBC % Not Reportable Seg Neutrophils # Man 19.5 H (1.8-7.7) K/mm3 Band Neutrophils # 0.7 K/mm3 Lymphocytes # (Manual) 2.0 (1.2-5.4) K/mm3 Abs React Lymphs (Man) 0.0 K/mm3 Monocytes # (Manual) 0.2 (0.0-0.8) K/mm3 Eosinophils # (Manual) 0.0 (0.0-0.4) K/mm3 Basophils # (Manual) 0.0 (0.0-0.1) K/mm3 Metamyelocytes # 0.0 K/mm3 Myelocytes # 0.0 K/mm3 Promyelocytes # 0.0 K/mm3 Blast Cells # 0.0 K/mm3 WBC Morphology Not Reportable Hypersegmented Neuts Not Reportable Hyposegmented Neuts Not Reportable Hypogranular Neuts Not Reportable Smudge Cells Not Reportable Toxic Granulation Not Reportable Toxic Vacuolation Not Reportable Dohle Bodies Not Reportable Pelger-Huet Anomaly Not Reportable Bijal Rods Not Reportable Platelet Estimate Consistent w auto Clumped Platelets Not Reportable Plt Clumps, EDTA Not Reportable Large Platelets Not Reportable Giant Platelets Not Reportable Platelet Satelliting Not Reportable Plt Morphology Comment Not Reportable RBC Morphology Not Reportable Dimorphic RBCs Not Reportable Polychromasia Not Reportable Hypochromasia Not Reportable Poikilocytosis Not Reportable Anisocytosis 1+ Microcytosis Not Reportable Macrocytosis Not Reportable Spherocytes Not Reportable Pappenheimer Bodies Not Reportable Sickle Cells Not Reportable Target Cells Not Reportable Tear Drop Cells Not Reportable Ovalocytes Not Reportable Helmet Cells Not Reportable Arment[place]-Gerrard Bodies Not Reportable [place] Rings Not Reportable Rob Cells Not Reportable Bite Cells Not Reportable Crenated Cell Not Reportable Elliptocytes Not Reportable Acanthocytes (Spur) Not Reportable Rouleaux Not Reportable Hemoglobin C Crystals Not Reportable Schistocytes Not Reportable Malaria parasites Not Reportable Diogo Bodies Not Reportable Hem Pathologist Commnt No Sodium 138 (137-145) mmol/L Potassium 3.8 (3.6-5.0) mmol/L Chloride 97.2 L (98-107) mmol/L Carbon Dioxide 21 L (22-30) mmol/L Anion Gap 24 mmol/L BUN 14 (9-20) mg/dL Creatinine 1.2 (0.8-1.5) mg/dL Estimated GFR > 60 ml/min BUN/Creatinine Ratio 12 % Glucose 145 H (75-100) mg/dL Calcium 10.1 (8.4-10.2) mg/dL Urine Color Yellow (Yellow) Urine Turbidity Clear (Clear) Urine pH 5.0 (5.0-7.0) Ur Specific [place] 1.029 (1.003-1.030) Urine Protein <15 mg/dl (Negative) mg/dL Urine Glucose (UA) Neg (Negative) mg/dL Urine Ketones Tr (Negative) mg/dL Urine Blood Neg (Negative) Urine Nitrite Neg (Negative) Urine Bilirubin Neg (Negative) Urine Urobilinogen < 2.0 (<2.0) mg/dL Ur Leukocyte Esterase Neg (Negative) Urine WBC (Auto) 3.0 (0.0-6.0) /HPF Urine RBC (Auto) 3.0 (0.0-6.0) /HPF Urine Mucus 2+ /HPF - Radiology Data Radiology results: report reviewed, image reviewed Noncontrast CT scan of the brain is negative for acute findings, chronic findings noted. X-ray of the chest, abdomen, pelvis negative for acute disease, ECDIS N NAVIGATION OPERATOR shunt catheter in place, findings unchanged when compared to prior x-rays, going back to 2013 - Medical Decision Making Differential diagnosis: Migraine headache, tension headache, cluster headache Assessment and plan: 26-year-old male with nonspecific headache. The patient is afebrile rectally, tachycardia has resolved, has unremarkable physical exam. Very low patient for strep, pharyngeal exam is unremarkable. Leukocytosis is appreciated, this is a nonspecific test, the patient has no neck stiffness, there are no meningeal signs, he is an unremarkable physical exam, recently ruled out for multiple pathologies, and felt improved after aggressive nonnarcotic therapy. There does not appear to be an emergent condition at this time, and the patient is suitable to follow up with an outpatient primary care doctor. Furthermore, patient observed in the ER for a prolonged. Of time without clinical decompensation, he will be discharged at this time, return precautions are reviewed. Critical care attestation.: If time is entered above; I have spent that time in minutes in the direct care of this critically ill patient, excluding procedure time. ED Disposition Clinical Impression: Headache Disposition: [id number] TO HOME OR SELFCARE Is pt being admited?: No Does the pt Need Aspirin: No Condition: Stable Instructions: Acute Headache (ED) Additional Instructions: Continue current outpatient medications. If taking the fiorecet medication, do not drive, consume alcohol, or combine with oxycodone/Percocet. Follow up with a primary care doctor or a neurologist specialist within the next 2 weeks. Return to the ER right away with new pain, worsened pain, migration of pain, fevers, chills, lethargy, irritability, projectile vomiting, change in mental status, inability to tolerate liquid feeds. Prescriptions: Butalb/Acetamin/Caff 50-325-40 [Fioricet] 1 each PO Q4H PRN #20 tablet PRN Reason: Headache Metoclopramide [Reglan] 10 mg PO QID PRN #30 tablet PRN Reason: Nausea Referrals: PRIMARY CARE, [Primary Care Provider] - 3-5 Days FERNANDO MARK MD [Staff Physician] - 3-5 Days ENRIQUE SANDHU MD [Staff Physician] - 3-5 Days ANDREW HUFF MD [Staff Physician] - 3-5 Days CALI CASTILLO MD [Staff Physician] - 3-5 Days
--- NOTE | 2017-06-29 03:52 | XRay Report ---
FINAL REPORT EXAM: XR ABDOMEN 1V AP HISTORY: vp product management shunt TECHNIQUE: An AP view of the abdomen and pelvis was obtained. FINDINGS: There is a right-sided shunt catheter coiled in the right upper quadrant. There is additional coiled shunt catheter in the pelvis. The bowel gas pattern is unremarkable. Bones and soft tissues are well maintained. IMPRESSION: The distal end of the right-sided shunt catheter is coiled in the right mid abdomen. There is additional catheter fragment in the dependent portion of the pelvis.
--- NOTE | 2017-06-29 03:54 | XRay Report ---
FINAL REPORT EXAM: XR CHEST 1V AP HISTORY: SHUNT LOCATION TECHNIQUE: An AP upright view of the chest was obtained. FINDINGS: The heart size and vascularity appear normal. The lungs are clear. There is a right-sided shunt catheter coursing from the lower neck overlying the right anterior chest wall. Bones and soft tissues otherwise unremarkable. IMPRESSION: The right-sided shunt catheter appears intact coursing along the right chest wall. No acute process in the chest.
[2017-06-29 04:30] LABS: Hemoglobin 17.6 gm/dl (11.8-15.2); Mean Corpuscular HGB Conc 35 % (32-34); Mean Corpuscular Hemoglobin 32 pg (28-32); Mean Corpuscular Volume 91 fl (84-94); Platelet Count 250 K/mm3 (140-440); Red Blood Count 5.48 M/mm3 (3.65-5.03); Red Cell Distribution Width 13.1 % (13.2-15.2)
[2017-06-29 04:32] LABS: White Blood Count 23.7 K/mm3 (4.5-11.0)
[2017-06-29] MEDS ORDERED: FIORICET PO ONE (04:36)
== END 2017-06-29 05:12 | disposition home or self-care (01) ==
LOC: ED 15:44
DX: R51 Headache (principal); G40.909 Epilepsy, unspecified, not intractable, without status epilepticus; I10 Essential (primary) hypertension; Z87.891 Personal history of nicotine dependence
CPT/HCPCS: 36415; 70450; 71010; 74000; 80048; 81001; 85007; 85025; 85027; 87116; 87430; 96365; 96375; 99285; J1200; J2765; J2930; J3475

== ENCOUNTER 2019-06-10 20:34 | Emergency (ER) | payer OTHER ==
--- NOTE | 2019-06-10 21:15 | Event Note ---
ED Screening Note Date of service: 06/10/19 Time: 21:14 ED Screening Note: 28 y o male presents with URI sx This initial assessment/diagnostic orders/clinical plan/treatment(s) is/are subject to change based on patients health status, clinical progression and re- assessment by fellow clinical providers in the ED. Further treatment and workup at subsequent clinical providers discretion. Patient/guardian urged not to elope from the ED as their condition may be serious if not clinically assessed and managed. Initial orders include: cxr
[2019-06-10] MEDS ORDERED: IBUPROFEN 800 MG TAB PO ONE (22:26)
--- NOTE | 2019-06-10 22:27 | Emergency Department Report ---
Minor Respiratory - HPI Chief Complaint: Upper Respiratory Infection Stated Complaint: GENNY/CHEST PAIN/HEADACHE Time Seen by Provider: 06/10/19 21:14 Duration: 2 Days Minor Respiratory: Yes Rhinorrhea, Yes Sore Throat, Yes Cough, Yes Chest Pain (cough), No Able to Tolerate Fluids, No Ear Pain, No Sick Contacts, No Hemoptysis, No Fever Other History: 28-year-old male presents to the emergency room complaining of a 2 day history of sore throat and stuffy nose cough back pain and chest pain with cough and headache. Patient has taken nothing for his symptoms. Patient denies any fever. He reports swallowing makes it worse. ED Review of Systems ROS: Stated complaint: GENNY/CHEST PAIN/HEADACHE Other details as noted in HPI Constitutional: denies: chills, fever ENT: throat pain, congestion Respiratory: cough Cardiovascular: denies: chest pain, palpitations Endocrine: no symptoms reported Gastrointestinal: denies: abdominal pain, nausea, diarrhea Genitourinary: denies: urgency, dysuria Musculoskeletal: denies: back pain, joint swelling, arthralgia Skin: denies: rash, lesions Neurological: headache Psychiatric: denies: anxiety, depression Hematological/Lymphatic: denies: easy bleeding, easy bruising ED Past Medical Hx - Past Medical History Hx Hypertension: Yes Hx CVA: No Hx Heart Attack/AMI: No Hx Congestive Heart Failure: No Hx Diabetes: No Hx Deep Vein Thrombosis: No Hx Pulmonary Embolism: No Hx GERD: No Hx Liver Disease: No Hx Renal Disease: No Hx Sickle Cell Disease: No Hx Arthritis: No Hx Headaches / Migraines: No Hx Seizures: Yes Hx Kidney Stones: No Hx Psychiatric Treatment: No Hx Asthma: No Hx COPD: No Hx Tuberculosis: No Hx Dementia: No Hx HIV: No Additional medical history: spina bifida - Surgical History Hx Coronary Stent: No Hx Open Heart Surgery: No Hx Pacemaker: No Hx Internal Defibrillator: No Hx Cholecystectomy: No Hx Appendectomy: No Hx Breast Surgery: No Additional Surgical History: shunt to R. side head - Social History Smoking Status: Current Every Day Smoker - Medications Home Medications: Home Medications Medication Instructions Recorded Confirmed Last Taken Type Pantoprazole [Protonix TAB] 40 mg PO QDAY #30 tablet 06/25/17 06/29/17 06/28/17 Rx acetaZOLAMIDE [Diamox TAB] 250 mg PO DAILY #30 tablet 06/25/17 06/29/17 06/28/17 Rx levETIRAcetam [Keppra TAB] 500 mg PO BID #60 tablet 06/25/17 06/29/17 06/28/17 Rx Butalb/Acetamin/Caff 50-325-40 1 each PO Q4H PRN #20 tablet 06/29/17 Unknown Rx [Fioricet] Metoclopramide [Reglan] 10 mg PO QID PRN #30 tablet 06/29/17 Unknown Rx oxyCODONE /ACETAMINOPHEN [Percocet 1 tab PO Q4HR 06/29/17 06/29/17 06/28/17 History 5/325] ALBUTEROL Inhaler (OR & NICU) 1 puff IH Q4-6H PRN #1 inha 09/03/18 Unknown Rx [ProAir HFA Inhaler] predniSONE [Deltasone] 50 mg PO QDAY #5 tab 09/03/18 Unknown Rx Amoxicillin/Potassium Clav 1 each PO BID #20 tablet 06/05/19 Unknown Rx [Augmentin 875-125 Tablet] Chlorhexidine Gluconate [Hibiclens] 10 ml TP BID #240 liquid 06/05/19 Unknown Rx Mupirocin [Bactroban 2%] 15 applic TP TID #15 gm 06/05/19 Unknown Rx Cetirizine HCl/Pseudoephedrine 1 each PO Q12H #30 tab.er.12h 06/10/19 Unknown Rx [Zyrtec-D Tablet] Fluticasone [Flonase] 1 spray NS QDAY #1 bottle 06/10/19 Unknown Rx Ibuprofen [Motrin 600 MG tab] 600 mg PO Q8H PRN #15 tablet 06/10/19 Unknown Rx Minor Respiratory Exam - Exam General: Vital signs noted. No distress. Alert and acting appropriately. HEENT: Yes Moist Mucous Membranes, No Pharyngeal Erythema, No Pharyngeal Exudates, No Rhinorrhea, No Conjuctival Injection, No Frontal Tenderness, No Maxillary Tenderness Ear: Neither EAC Pain, Neither EAC Discharge Neck: Yes Supple, No Adenopathy Lungs: Yes Good Air Exchange, No Wheezes, No Ronchi, No Stridor, No Cough, No Labored Respirations, No Retractions, No Use of Accessory Muscles, No Other Abnormal Lung Sounds Heart: No Regular (tachycardic) Abdomen: Yes Normal Bowel Sounds, No Tenderness, No Peritoneal Signs Skin: No Rash, No Edema Neurologic: Alert and oriented, no deficits. Musculoskeletal: Unremarkable. ED Course Vital Signs 06/10/19 21:13 Temperature 99.0 F Pulse Rate 117 H Respiratory 18 Rate Blood Pressure 142/92 O2 Sat by Pulse 98 Oximetry ED Medical Decision Making - Radiology Data Radiology results: report reviewed Patient: MARTÍNEZ NICHOLS MR#: [id number] : 1990 Acct:[id number] Age/Sex: 28 / M ADM Date: 06/10/19 Loc: ED Attending Dr: Ordering Physician: CACHORRO MILLER Date of Service: 06/10/19 Procedure(s): XR chest routine 2V Accession Number(s): [id number] cc: CACHORRO MILLER Fluoro Time In Minutes: CHEST 2 VIEWS INDICATION / CLINICAL INFORMATION: cough. COMPARISON: Chest x-ray on 09/03/2018. FINDINGS: SUPPORT DEVICES: Stable TILE AND MARBLE SETTER shunt tubing coursing over the right chest. HEART / MEDIASTINUM: No significant abnormality. LUNGS / PLEURA: No significant pulmonary or pleural abnormality. No pneumoth orax. ADDITIONAL FINDINGS: No significant additional findings. IMPRESSION: 1. No acute findings. Signer Name: Gerson Santos MD Signed: 06/10/2019 10:38 PM Workstation Name: [id number] Transcribed By: KATT Dictated By: Gerson Santos MD Electronically Authenticated By: Gerson Santos MD Signed Date/Time: 06/10/192237 DD/ 37 TD/TT: - Medical Decision Making 28-year-old male presents to the emergency room complaining of a 2 day history of sore throat and stuffy nose cough back pain and chest pain with cough and headache. Patient has taken nothing for his symptoms. Patient denies any fever. He reports swallowing makes it worse. This x-ray has been ordered. Ibuprofen has been ordered for pain management. Critical care attestation.: If time is entered above; I have spent that time in minutes in the direct care of this critically ill patient, excluding procedure time. ED Disposition Clinical Impression: URI with cough and congestion Disposition: - TO HOME OR SELFCARE Is pt being admited?: No Does the pt Need Aspirin: No Condition: Stable Instructions: Upper Respiratory Infection (ED) Additional Instructions: Chest x-ray is negative for any pneumonias or acute abnormalities. Please take ibuprofen and Zyrtec and use Flonase as needed. Follow up with her primary care provider if his symptoms persist or gets worse Prescriptions: Fluticasone [Flonase] 1 spray NS QDAY #1 bottle Ibuprofen [Motrin 600 MG tab] 600 mg PO Q8H PRN #15 tablet PRN Reason: Pain Cetirizine HCl/Pseudoephedrine [Zyrtec-D Tablet] 1 each PO Q12H #30 tab.er.12h Referrals: PRIMARY CARE, [Primary Care Provider] - 3-5 Days Forms: Work/School Release Form(ED)
--- NOTE | 2019-06-10 22:43 | XRay Report ---
CHEST 2 VIEWS INDICATION / CLINICAL INFORMATION: cough. COMPARISON: Chest x-ray on 09/03/2018. FINDINGS: SUPPORT DEVICES: Stable GORE STITCHER shunt tubing coursing over the right chest. HEART / MEDIASTINUM: No significant abnormality. LUNGS / PLEURA: No significant pulmonary or pleural abnormality. No pneumothorax. ADDITIONAL FINDINGS: No significant additional findings. IMPRESSION: 1. No acute findings. Signer Name: Gerson Santos MD Signed: 06/10/2019 10:38 PM Workstation Name: [id number]
[2019-06-10 23:58] VITALS: BP 125/82
== END 2019-06-10 23:00 | disposition home or self-care (01) ==
LOC: ED 20:34
DX: J06.9 Acute upper respiratory infection, unspecified (principal); I10 Essential (primary) hypertension; F17.200 Nicotine dependence, unspecified, uncomplicated; Z79.899 Other long term (current) drug therapy; Z88.6 Allergy status to analgesic agent
CPT/HCPCS: 71046